=== PATIENT | female | born 1955 | race Caucasian/White ===

== ENCOUNTER → 2016-10-29 | Outpatient (CLI) | payer MEDICAID ==
[~2016-10-29] MED LIST: ACETAMINOPHEN500 M5 PO; ALBUTEROL2.5 MG/3 M IH; AMITRIPTYLINE H10 M2 PO; ANUSOL HC CREAM30 GM REC; ANUSOL HC CREAM30 GM TP; ATROVENT I0.2 MG/1 M IH; BUDEPRION XL150 MG PO; CEFZIL250 MG PO; CEPHALEXIN500 M1 PO; CIPRO 100MG TA100 MG PO; CLONAZEPAM0.5 MG PO; DEXILANT60 MG PO; DIFLUCAN150 MG PO; DULCOLAX STOOL100 MG PO; DULCOLAX100 MG PO; ERGOCALCIFER50000 IU PO; FEMARA2.5 MG PO; FLONASE NASAL S16 GM NS; GABAPENTIN300 M1 PO; GABAPENTIN600 MG PO; GABARONE300 MG PO; GOOD NEIGHBOR500 M2 PO; HYDROCORT CREAM1% TP; HYDROXYZINE HCL25 MG PO; HYDROXYZINE HYD25 MG PO; KLONOPIN 0.5MG0.5 MG PO; LEXAPRO20 M1 PO; LEXAPRO20 MG PO; LIDODERM 5% PATC1 EA TP; LOPRESSOR 550 MG/TAB PO; METAMUCIL POWD538 GM PO; METAMUCIL1 PDR PO; METOPROLOL SUCC50 M1 PO; MIRALAX 17GM PK1 PKT PO; MIRALAX17 GM PO; MIRALAX17 GM/DOSE PO; MUPIROCIN2% TP; NEURONTIN300 M1 PO; NEURONTIN300 MG/CAP PO; OMEGA 3 1,0001 EACH PO; PYRIDIUM 100MG100 MG PO; QVAR8.7 G1 IH; SIMVASTATIN10 MG PO; TRAZADONE HYDR100 MG PO; WELCHOL 625MG625 MG PO; WELLBUTRIN XL300 MG PO; ZOCOR 40MG40 MG PO; ZOFRAN8 MG PO; [UNRECOGNIZED DRUG - OTHER] PO; [UNRECOGNIZED DRUG - OTHER] TP
== END ==
LOC: RAD 08:37
DX: M54.2 Cervicalgia (principal); M25.511 Pain in right shoulder; M48.02 Spinal stenosis, cervical region; M43.22 Fusion of spine, cervical region; M47.812 Spondylosis without myelopathy or radiculopathy, cervical region; M19.011 Primary osteoarthritis, right shoulder

== ENCOUNTER → 2017-01-01 | Outpatient (CLI) | payer MEDICAID | LOC: LAB 08:08 | DX: R39.15 Urgency of urination (principal); R31.9 Hematuria, unspecified ==

== ENCOUNTER → 2017-01-07 | Outpatient (CLI) | payer MEDICAID | LOC: LAB 18:51 | DX: M25.562 Pain in left knee (principal) ==

== ENCOUNTER → 2017-01-08 | Outpatient (CLI) | payer MEDICAID | LOC: LAB 11:28 | DX: R10.2 Pelvic and perineal pain (principal); K62.89 Other specified diseases of anus and rectum ==

== ENCOUNTER → 2017-01-09 | Outpatient (CLI) | payer MEDICAID | LOC: RAD 15:53 | DX: M25.562 Pain in left knee (principal) ==

== ENCOUNTER → 2017-01-14 | Outpatient (CLI) | payer MEDICAID | LOC: RAD 13:14 | DX: R10.2 Pelvic and perineal pain (principal); K62.89 Other specified diseases of anus and rectum; K57.90 Diverticulosis of intestine, part unspecified, without perforation or abscess without bleeding | CPT/HCPCS: Q9967 ==

== ENCOUNTER → 2017-01-26 | Outpatient (CLI) | payer MEDICAID | LOC: LAB 10:08 | DX: M25.562 Pain in left knee (principal); R39.15 Urgency of urination ==

== ENCOUNTER → 2017-02-13 | Outpatient (CLI) | payer MEDICAID ==
[2016-08-16 23:20] VITALS: BP 157/87
== END ==
LOC: LAB 08:11
DX: R19.7 Diarrhea, unspecified (principal)

== ENCOUNTER 2017-03-05 00:46 | Emergency (ER) | payer MEDICAID ==
[~2017-03-05] VITALS: Ht 172.7 cm; Wt 87.9 kg
[2017-03-05 01:51] VITALS: BP 128/76
== END 2017-03-05 01:51 | disposition home or self-care (01) ==
LOC: ED 00:46
DX: K62.5 Hemorrhage of anus and rectum (principal); Z98.890 Other specified postprocedural states; Z85.3 Personal history of malignant neoplasm of breast; K59.00 Constipation, unspecified

== ENCOUNTER → 2017-04-03 | Outpatient (CLI) | payer MEDICAID ==
[2017-03-05 01:51] VITALS: BP 128/76
== END ==
LOC: LAB 07:13
DX: R10.84 Generalized abdominal pain (principal); K21.9 Gastro-esophageal reflux disease without esophagitis; E11.42 Type 2 diabetes mellitus with diabetic polyneuropathy; E78.00 Pure hypercholesterolemia, unspecified; E55.9 Vitamin D deficiency, unspecified; R39.15 Urgency of urination; K73.9 Chronic hepatitis, unspecified

== ENCOUNTER → 2017-05-29 | Outpatient (CLI) | payer MEDICAID | LOC: LAB 14:34 | DX: R30.0 Dysuria (principal) ==

== ENCOUNTER → 2017-07-02 | Outpatient (CLI) | payer MEDICAID | LOC: LAB 10:44 | DX: R10.9 Unspecified abdominal pain (principal); R19.7 Diarrhea, unspecified ==

== ENCOUNTER → 2017-08-18 | Outpatient (CLI) | payer MEDICAID | LOC: MAMMO 13:48 | DX: Z12.31 Encounter for screening mammogram for malignant neoplasm of breast (principal); Z90.12 Acquired absence of left breast and nipple ==

== ENCOUNTER → 2018-01-22 | Outpatient (CLI) | payer MEDICAID | LOC: RAD 11:56 | PROVIDERS: Family Medicine | DX: J06.9 Acute upper respiratory infection, unspecified (principal); R07.89 Other chest pain; K21.9 Gastro-esophageal reflux disease without esophagitis; R16.0 Hepatomegaly, not elsewhere classified; E55.9 Vitamin D deficiency, unspecified; R53.83 Other fatigue ==

== ENCOUNTER → 2018-03-24 | Outpatient (CLI) | payer MEDICAID | LOC: RAD 09:08 | DX: R05 Cough (principal); R06.02 Shortness of breath; Z90.11 Acquired absence of right breast and nipple ==

== ENCOUNTER → 2018-04-22 | Outpatient (CLI) | payer MEDICAID ==
[2018-04-22 08:22] LABS: ALBUMIN 3.9 g/dL (3.5-5.0); DIRECT BILIRUBIN 0.3 mg/dL (0.0-0.4); TOTAL BILIRUBIN 0.8 mg/dL (0.2-1.3); TOTAL PROTEIN 7.3 g/dL (6.3-8.2)
== END ==
LOC: LAB 07:51
PROVIDERS: Family Medicine
DX: E78.00 Pure hypercholesterolemia, unspecified (principal); E11.42 Type 2 diabetes mellitus with diabetic polyneuropathy; R16.0 Hepatomegaly, not elsewhere classified

== ENCOUNTER 2018-05-19 08:07 | Emergency (ER) | payer MEDICAID ==
[~2018-05-19 08:07] MED LIST changes: -ERGOCALCIFER50000 IU PO; +GOOD NEIGHBOR P1 T32 PO; +METAMUCIL POWD174 GM PO; -METAMUCIL POWD538 GM PO
[2018-05-19] MEDS ORDERED: NEURONTIN300 M1 PO (08:17)
[2018-05-19] MEDS ORDERED: IPRATROPIUM BROM3 M1 IH (08:31)
[2018-05-19] MEDS ORDERED: GOOD NEIGHBOR180 MG PO (08:33)
[2018-05-19] MEDS ORDERED: SIMVASTATIN10 M1 PO (08:33)
[2018-05-19] MEDS ORDERED: LIDOCAINE 5%35.44 GM TOP (08:34)
[2018-05-19] MEDS ORDERED: PANTOPRAZOLE SO40 MG PO (08:48)
[2018-05-19 10:21] VITALS: BP 136/75
[2018-05-19] MEDS ORDERED: TRAMADOL 50 MG TAB PO (16:51)
== END 2018-05-19 11:01 | disposition home or self-care (01) ==
LOC: ED 08:07
DX: S82.831A Other fracture of upper and lower end of right fibula, initial encounter for closed fracture (principal); W01.0XXA Fall on same level from slipping, tripping and stumbling without subsequent striking against object, initial encounter; Y92.009 Unspecified place in unspecified non-institutional (private) residence as the place of occurrence of the external cause; F17.210 Nicotine dependence, cigarettes, uncomplicated

== ENCOUNTER → 2018-06-02 | Outpatient (CLI) | payer MEDICAID ==
[2018-05-19 10:21] VITALS: BP 136/75
[~2018-06-02] MED LIST changes: +GOOD NEIGHBOR180 MG PO; +IPRATROPIUM BROM3 M1 IH; +LIDOCAINE 5%35.44 GM TOP; +PANTOPRAZOLE SO40 MG PO; +SIMVASTATIN10 M1 PO; +TRAMADOL 50 MG TAB PO
[2018-06-02 10:07] LABS: BASO # 0.1 (0.02-0.10); EOS # 0.1 (0.04-0.40); EOS % 1.5 % (1.0-5.0); HEMATOCRIT 40.7 % (37.0-47.0); HEMOGLOBIN 13.5 g/dL (12.5-16.0); LYMPH# 3.2 (1.50-4.00); MEAN CELL VOLUME 94 fl (78-100); MEAN CORPUSCULAR HEMOGLOBIN 31 pg (27-31); MEAN CORPUSCULAR HGB CONC 33 g/dL (33-37); MEAN PLATELET VOLUME 9.7 fl (7.4-10.4); MONO # 0.8 (0.20-0.80); PLATELET COUNT 224 K/mm3 (130-400); RED BLOOD COUNT 4.32 M/mm3 (4.10-5.30); RED CELL DISTRIBUTION WIDTH 14.4 % (11.5-14.5); WHITE BLOOD COUNT 9.3 K/mm3 (4.8-10.8)
[2018-06-02 10:19] LABS: BUN/CREATININE RATIO 15.2 (6.0-26.0); CALCIUM 9.3 mg/dL (8.4-10.2); TOTAL BILIRUBIN 1.3 mg/dL (0.2-1.3); TOTAL PROTEIN 7.1 g/dL (6.3-8.2)
[2018-06-02 11:07] LABS: URINE APPEARANCE CLEAR; URINE BILIRUBIN NEGATIVE (NEGATIVE); URINE BLOOD TRACE (NEGATIVE); URINE COLOR YELLOW; URINE GLUCOSE NEGATIVE (NEGATIVE); URINE KETONE NEGATIVE (NEGATIVE); URINE LEUKOCYTE ESTERASE NEGATIVE (NEGATIVE); URINE MUCUS PRESENT (NOT PRESENT); URINE NITRATE NEGATIVE (NEGATIVE); URINE PROTEIN(semi-quant) TRACE mg/dL (NEGATIVE); URINE UROBILINOGEN NORMAL (NORMAL)
== END ==
LOC: RAD 09:33
PROVIDERS: Family Medicine
DX: M79.89 Other specified soft tissue disorders (principal); S82.839A Other fracture of upper and lower end of unspecified fibula, initial encounter for closed fracture; R19.7 Diarrhea, unspecified; M53.3 Sacrococcygeal disorders, not elsewhere classified; R50.9 Fever, unspecified; M79.672 Pain in left foot; Z98.890 Other specified postprocedural states; Z96.7 Presence of other bone and tendon implants

== ENCOUNTER → 2018-06-16 | Outpatient (CLI) | payer MEDICAID ==
[2018-05-19 10:21] VITALS: BP 136/75
== END ==
LOC: LAB 15:08
DX: R19.7 Diarrhea, unspecified (principal)

== ENCOUNTER → 2018-07-27 | Outpatient (CLI) | payer MEDICAID ==
[2018-07-27 11:59] LABS: ALBUMIN 3.8 g/dL (3.5-5.0); CALCIUM 9.1 mg/dL (8.4-10.2); POTASSIUM 3.7 mmol/L (3.6-5.0); TOTAL BILIRUBIN 1.6 mg/dL (0.2-1.3); TOTAL PROTEIN 6.6 g/dL (6.3-8.2)
[2018-07-27 12:07] LABS: EOS # 0.1 (0.04-0.40); EOS % 0.9 % (1.0-5.0); HEMATOCRIT 42.5 % (37.0-47.0); LYMPH# 3.4 (1.50-4.00); MEAN CELL VOLUME 94 fl (78-100); MEAN CORPUSCULAR HEMOGLOBIN 31 pg (27-31); MEAN CORPUSCULAR HGB CONC 33 g/dL (33-37); MEAN PLATELET VOLUME 10.3 fl (7.4-10.4); MONO # 0.6 (0.20-0.80); NEU # 4.1 (1.40-6.50); PLATELET COUNT 185 K/mm3 (130-400); RED BLOOD COUNT 4.53 M/mm3 (4.10-5.30); RED CELL DISTRIBUTION WIDTH 13.5 % (11.5-14.5); WHITE BLOOD COUNT 8.2 K/mm3 (4.8-10.8)
== END ==
LOC: LAB 11:15
DX: R19.7 Diarrhea, unspecified (principal); R74.8 Abnormal levels of other serum enzymes; R11.0 Nausea; K62.89 Other specified diseases of anus and rectum; R19.5 Other fecal abnormalities; K64.1 Second degree hemorrhoids

== ENCOUNTER → 2018-08-25 | Outpatient (CLI) | payer MEDICAID | LOC: RAD 08-02 08:00 | DX: R74.8 Abnormal levels of other serum enzymes (principal) ==

== ENCOUNTER → 2018-09-14 | Day surgery (SDC) | payer MEDICAID | LOC: MSO 09:58 | DX: K44.9 Diaphragmatic hernia without obstruction or gangrene (principal); R19.7 Diarrhea, unspecified; R11.2 Nausea with vomiting, unspecified; K29.70 Gastritis, unspecified, without bleeding; Z86.010 Personal history of colon polyps; K64.1 Second degree hemorrhoids; K57.30 Diverticulosis of large intestine without perforation or abscess without bleeding; I10 Essential (primary) hypertension; Z86.718 Personal history of other venous thrombosis and embolism; Z86.711 Personal history of pulmonary embolism; J45.909 Unspecified asthma, uncomplicated; F17.210 Nicotine dependence, cigarettes, uncomplicated; K21.9 Gastro-esophageal reflux disease without esophagitis; K75.9 Inflammatory liver disease, unspecified; M79.7 Fibromyalgia; F41.9 Anxiety disorder, unspecified; F32.9 Major depressive disorder, single episode, unspecified; E11.9 Type 2 diabetes mellitus without complications; Z85.9 Personal history of malignant neoplasm, unspecified; Z79.899 Other long term (current) drug therapy; Z90.12 Acquired absence of left breast and nipple | CPT/HCPCS: 00813; A4649; J2704; J7030 ==

== ENCOUNTER → 2018-10-13 | Outpatient (CLI) | payer MEDICAID | LOC: MAMMO 13:58 | DX: Z12.31 Encounter for screening mammogram for malignant neoplasm of breast (principal); Z85.3 Personal history of malignant neoplasm of breast; Z90.12 Acquired absence of left breast and nipple ==

== ENCOUNTER → 2018-12-17 | Outpatient (CLI) | payer MEDICAID | LOC: LAB 11:36 | DX: L03.011 Cellulitis of right finger (principal) ==

== ENCOUNTER → 2019-06-13 | Outpatient (CLI) | payer MEDICARE, MEDICAID ==
[2019-06-13 09:29] LABS: POTASSIUM 3.5 mmol/L (3.5-5.1)
[2019-06-13 09:30] LABS: ALBUMIN 3.6 g/dL (3.4-4.8)
[2019-06-13 09:34] LABS: TOTAL BILIRUBIN 1.2 mg/dL (0.2-1.2)
[2019-06-13 09:41] LABS: EOS # 0.1 (0.04-0.40); EOS % 0.8 % (1.0-5.0); HEMATOCRIT 41.1 % (37.0-47.0); HEMOGLOBIN 13.4 g/dL (12.5-16.0); LYMPH# 2.6 (1.50-4.00); MEAN CELL VOLUME 96 fl (78-100); MEAN CORPUSCULAR HEMOGLOBIN 31 pg (27-31); MEAN CORPUSCULAR HGB CONC 33 g/dL (33-37); MEAN PLATELET VOLUME 9.8 fl (7.4-10.4); MONO # 0.7 (0.20-0.80); NEU # 5.3 (1.40-6.50); PLATELET COUNT 192 K/mm3 (130-400); RED BLOOD COUNT 4.27 M/mm3 (4.10-5.30); WHITE BLOOD COUNT 8.7 K/mm3 (4.8-10.8)
== END ==
LOC: LAB 09:04
PROVIDERS: Family Medicine
DX: Z00.00 Encounter for general adult medical examination without abnormal findings (principal); E11.42 Type 2 diabetes mellitus with diabetic polyneuropathy; N39.44 Nocturnal enuresis; M81.0 Age-related osteoporosis without current pathological fracture; E78.00 Pure hypercholesterolemia, unspecified; F41.9 Anxiety disorder, unspecified; M54.2 Cervicalgia; J01.80 Other acute sinusitis; I10 Essential (primary) hypertension; K63.5 Polyp of colon; F32.9 Major depressive disorder, single episode, unspecified

== ENCOUNTER → 2019-06-30 | Outpatient (CLI) | payer MEDICARE, MEDICAID | LOC: RAD 11:49 | DX: J06.9 Acute upper respiratory infection, unspecified (principal); C50.919 Malignant neoplasm of unspecified site of unspecified female breast ==

== ENCOUNTER → 2019-07-18 | Outpatient (CLI) | payer MEDICARE, MEDICAID | LOC: RAD 09:14 | DX: S92.341A Displaced fracture of fourth metatarsal bone, right foot, initial encounter for closed fracture (principal); M20.11 Hallux valgus (acquired), right foot ==

== ENCOUNTER → 2019-08-29 | Outpatient (CLI) | payer MEDICARE, MEDICAID ==
[2019-08-29 14:53] LABS: HEMATOCRIT 42.1 % (37.0-47.0); HEMOGLOBIN 14.1 g/dL (12.5-16.0); MEAN PLATELET VOLUME 9.4 fl (7.4-10.4); RED BLOOD COUNT 4.47 M/mm3 (4.10-5.30); RED CELL DISTRIBUTION WIDTH 14.6 % (11.5-14.5); WHITE BLOOD COUNT 8.1 K/mm3 (4.8-10.8)
== END ==
LOC: LAB 14:30
PROVIDERS: Family Medicine
DX: M79.7 Fibromyalgia (principal); E55.9 Vitamin D deficiency, unspecified; M79.673 Pain in unspecified foot; M54.2 Cervicalgia; M25.511 Pain in right shoulder; M25.512 Pain in left shoulder

== ENCOUNTER 2019-09-05 09:40 | Observation (INO) | payer MEDICARE, MEDICAID ==
[~2019-09-05] VITALS: Ht 172.7 cm; Wt 84.7 kg
[~2019-09-05 09:40] MED LIST changes: +DULCOLAX STOOL100 M1 PO; -DULCOLAX STOOL100 MG PO
[2019-09-05] MEDS ORDERED: BACLOFEN5 MG PO (09:58)
[2019-09-05] MEDS ORDERED: PULMICORT90 MCG/Ac1 IH (09:59)
[2019-09-05 10:16] LABS: EOS # 0.1 (0.04-0.40); EOS % 1.4 % (1.0-5.0); HEMATOCRIT 43.6 % (37.0-47.0); HEMOGLOBIN 14.4 g/dL (12.5-16.0); LYMPH# 2.9 (1.50-4.00); MEAN CELL VOLUME 94 fl (78-100); MEAN CORPUSCULAR HEMOGLOBIN 31 pg (27-31); MEAN CORPUSCULAR HGB CONC 33 g/dL (33-37); MEAN PLATELET VOLUME 9.7 fl (7.4-10.4); MONO # 0.6 (0.20-0.80); NEU # 3.7 (1.40-6.50); PLATELET COUNT 188 K/mm3 (130-400); RED BLOOD COUNT 4.64 M/mm3 (4.10-5.30); RED CELL DISTRIBUTION WIDTH 14.7 % (11.5-14.5); WHITE BLOOD COUNT 7.3 K/mm3 (4.8-10.8)
[2019-09-05 10:29] LABS: ALBUMIN 3.9 g/dL (3.4-4.8)
[2019-09-05 10:30] LABS: SODIUM 146 mmol/L (136-145)
[2019-09-05 10:31] LABS: CALCIUM 9.8 mg/dL (8.3-10.5)
[2019-09-05 10:32] LABS: GLUCOSE 118 mg/dL (65-105)
[2019-09-05 10:33] LABS: CARBON DIOXIDE 30 mmol/L (23-31)
[2019-09-05 10:34] LABS: POTASSIUM 2.8 mmol/L (3.5-5.1); TOTAL BILIRUBIN 1.7 mg/dL (0.2-1.2)
[2019-09-05 10:37] LABS: AST-SGOT 34 U/L (5-34)
[2019-09-05 10:38] LABS: ALT/SGPT 17 U/L (0-55)
[2019-09-05 10:48] LABS: TROPONIN-I < 0.03 ng/mL (<0.030)
[2019-09-05 10:49] LABS: URINE APPEARANCE HAZY; URINE BILIRUBIN NEGATIVE (NEGATIVE); URINE BLOOD 50 ery/uL (NEGATIVE); URINE COLOR YELLOW; URINE GLUCOSE NEGATIVE (NEGATIVE); URINE KETONE NEGATIVE (NEGATIVE); URINE LEUKOCYTE ESTERASE NEGATIVE (NEGATIVE); URINE MUCUS PRESENT (NOT PRESENT); URINE NITRATE NEGATIVE (NEGATIVE); URINE PROTEIN(semi-quant) TRACE mg/dL (NEGATIVE); URINE UROBILINOGEN NORMAL (NORMAL)
[2019-09-05] MEDS ORDERED: GOOD NEIGHBOR P1 T32 PO (10:55)
[2019-09-05] MEDS ORDERED: GABAPENTIN TAB600 MG PO (10:57)
[2019-09-05] MEDS ORDERED: ESCITALOPRAM20 MG PO (10:57)
[2019-09-05 12:34] VITALS: BP 190/102
--- NOTE | 2019-09-05 13:00 | NUR ---
Pt admitted to room 304. Oriented to room. Pt is alert and oriented but forgetful. Pt in recliner with chair alarm. IV infusing as ordered into right AC.
[2019-09-05 13:13] VITALS: BP 190/102
[2019-09-05 14:46] VITALS: BP 146/82
[2019-09-05 18:06] VITALS: BP 169/97
--- NOTE | 2019-09-05 19:54 | NUR ---
PATIENT RESTING IN BED. SHIFT ASSESSMENT COMPLETED AT THIS TIME. PATIENT A/O X4. REPORTS PAIN 9/10 TO BACK OF HEAD, WILL LET PATIENT KNOW SHE IS ABLE TO HAVE MORE PAIN MEDICATIONS. LUNGS CTA, DENIES COUGH OR SHORTNESS OF BREATH. TELE TRACING NSR. NEURO CHECKS COMPLETED Q4H. 20 G IV CDI TO RIGHT AC, INFUSING 1/2 NS WITH K+ @ 83 MLS/HR. +2 BLE EDEMA NOTED. HS MEDICATIONS GIVEN, WILL GIVE CLONAZEPAM CLOSER TO 2200 PER PATIENT REQUEST. PATIENT WITHOUT FURTHER NEEDS AT THIS TIME, WILL CONTINUE TO MONITOR. CALL LIGHT WITHIN REACH AND BED ALARMS ON.
[2019-09-05 22:47] VITALS: BP 149/77
[2019-09-06] VITALS (7 sets, daily range): BP systolic 134–200; BP diastolic 64–109
[2019-09-06 06:20] LABS: ALBUMIN 3.4 g/dL (3.4-4.8)
[2019-09-06 06:21] LABS: POTASSIUM 3.9 mmol/L (3.5-5.1)
[2019-09-06 06:22] LABS: CALCIUM 9.2 mg/dL (8.3-10.5)
[2019-09-06 06:23] LABS: TOTAL PROTEIN 5.9 g/dL (6.2-8.1)
[2019-09-06 06:25] LABS: TOTAL BILIRUBIN 1.2 mg/dL (0.2-1.2)
--- NOTE | 2019-09-06 07:00 | NUR ---
REPORT RECEIVED FROM CHANA HENSON.
--- NOTE | 2019-09-06 07:30 | NUR ---
AWAKENS EASILY FROM SLEEP. 1/2NS WITH 20MEQ KCL INFUSING PER ORDERS TO INTACT IV SITE AT RT AC. C/O HEAD AND NECK DISCOMFORT; MORE TO THE RT SIDE. RATES 9/10. ALSO HAS DISCOMFORT TO BOTH FEET; DESCRIBES FEET HARD ON THE INSIDE. ANSWERS ORIENTATION QUESTIONS CORRECTLY. STUTTERS AT TIMES. PUPILS ARE NOT EQUAL; RT IS SLIGHTLY LARGER THAN LT. BOTH ARE BRISKLY REACTIVE TO LIGHT. PATIENT STATES "THAT'S THE ONE I HAVE ISSUES WITH SOMETIMES" SHE POINTS TO RT EYE. DOES NOT WISH TO GET UP FOR BREAKFAST AT THIS TIME. WILL COME BACK IN 30 MINUTES. CALL LIGHT IN REACH.
--- NOTE | 2019-09-06 07:45 | NUR ---
DR FIGUEROA NOTIFIED OF PUPIL SIZE. HE IS IN FACILITY AND WILL ASSESS PATIENT.
--- NOTE | 2019-09-06 08:14 | NUR ---
IV FLUIDS STOPPED AT THIS TIME.
--- NOTE | 2019-09-06 15:55 | NUR ---
RESTING IN BED WITH EYES CLOSED AND ROOM LIGHTS OFF. AWAKENS EASILY. STILL HAS HEADACHE. TYLENOL GIVEN. WATER CUP REFILLED.
--- NOTE | 2019-09-06 19:19 | NUR ---
REPORT PROVIDED TO JUSTINE HENSON.
--- NOTE | 2019-09-06 20:00 | NUR ---
ASSMNT COMPLETE, PT STATES 'FEET FEEL HEAVY', NO OTHER C/O PAIN, ASSISTED PT TO BATHROOM, USES WALKER, NO OTHER REQUESTS, CALL LIGHT W/I REACH
[2019-09-07 03:27] VITALS: BP 161/87
[2019-09-07 06:15] VITALS: BP 158/85
[2019-09-07] MEDS ORDERED: METOPROLOL TAR100 M1 PO (08:09)
[2019-09-07] MEDS ORDERED: EFFER-K20 MEQ PO (08:10)
[2019-09-07 09:02] LABS: POTASSIUM 3.8 mmol/L (3.5-5.1)
[2019-09-07 09:03] LABS: CALCIUM 9.2 mg/dL (8.3-10.5)
[2019-09-07 11:56] VITALS: BP 157/79
--- NOTE | 2019-09-07 12:58 | NUR ---
Patient alert and oriented. Reports dull neck pain. Denies need for PRN pain medication. Denies dizziness or shortness of breath. MRI and ECHO completed this morning. Patient discharged to home. Discharge instructions provided. Education on increased metoprolol dose provided. Called [facility] regarding cost of new medications, pharmacy staff reports total cost is $0. Medications will be delivered this afternoon per patient request. Follow up appointments with Dr. Rubio and Dr. Aguirre scheduled. Patient verbalizes understanding of discharge instructions. All questions answered. Out of facility via wheelchair to POV. Transfers into POV without incident.
== END 2019-09-07 12:58 | disposition home or self-care (01) ==
LOC: ED 09:40 → MED/SURG 11:56
PROVIDERS: Family Medicine; ADMIT Nurse Practitioner Primary Care
DX: E87.6 Hypokalemia (principal); E86.0 Dehydration; I10 Essential (primary) hypertension; R51 Headache; F41.9 Anxiety disorder, unspecified; F32.9 Major depressive disorder, single episode, unspecified; R41.82 Altered mental status, unspecified; E11.9 Type 2 diabetes mellitus without complications; Z85.3 Personal history of malignant neoplasm of breast; K73.9 Chronic hepatitis, unspecified; K21.9 Gastro-esophageal reflux disease without esophagitis; E78.5 Hyperlipidemia, unspecified; M79.7 Fibromyalgia; Z90.12 Acquired absence of left breast and nipple; Z79.899 Other long term (current) drug therapy; F17.210 Nicotine dependence, cigarettes, uncomplicated; Z88.8 Allergy status to other drugs, medicaments and biological substances; Z88.6 Allergy status to analgesic agent; Z91.041 Radiographic dye allergy status
CPT/HCPCS: A9585; G0378; J1650; J3480

== ENCOUNTER → 2019-10-11 | Outpatient (CLI) | payer MEDICARE, MEDICAID ==
[~2019-10-11] MED LIST changes: +BACLOFEN5 MG PO; +EFFER-K20 MEQ PO; +ESCITALOPRAM20 MG PO; +GABAPENTIN TAB600 MG PO; +METOPROLOL TAR100 M1 PO; +PULMICORT90 MCG/Ac1 IH
[2019-10-11 11:34] LABS: POTASSIUM 4.2 mmol/L (3.5-5.1)
[2019-10-11 11:35] LABS: CALCIUM 9.6 mg/dL (8.3-10.5)
== END ==
LOC: LAB 11:13
PROVIDERS: Family Medicine
DX: E87.6 Hypokalemia (principal)

== ENCOUNTER → 2019-10-21 | Outpatient (CLI) | payer MEDICARE, MEDICAID ==
[2019-10-21 10:59] LABS: POTASSIUM 3.7 mmol/L (3.5-5.1)
[2019-10-21 11:00] LABS: CALCIUM 9.2 mg/dL (8.3-10.5)
== END ==
LOC: LAB 10:36
PROVIDERS: Family Medicine
DX: E87.6 Hypokalemia (principal)

== ENCOUNTER → 2019-11-08 | Outpatient (CLI) | payer MEDICARE, MEDICAID ==
[2019-11-08 09:13] LABS: POTASSIUM 3.8 mmol/L (3.5-5.1)
[2019-11-08 09:14] LABS: ALBUMIN 3.7 g/dL (3.4-4.8)
[2019-11-08 09:15] LABS: CALCIUM 9.8 mg/dL (8.3-10.5); EOS # 0.1 (0.04-0.40); HEMATOCRIT 42.2 % (37.0-47.0); HEMOGLOBIN 13.4 g/dL (12.5-16.0); MEAN CELL VOLUME 98 fl (78-100); MEAN CORPUSCULAR HEMOGLOBIN 31 pg (27-31); MEAN CORPUSCULAR HGB CONC 32 g/dL (33-37); MEAN PLATELET VOLUME 9.4 fl (7.4-10.4); MONO # 0.6 (0.20-0.80); PLATELET COUNT 187 K/mm3 (130-400); RED BLOOD COUNT 4.32 M/mm3 (4.10-5.30); RED CELL DISTRIBUTION WIDTH 14.1 % (11.5-14.5); WHITE BLOOD COUNT 8.7 K/mm3 (4.8-10.8)
[2019-11-08 09:16] LABS: TOTAL PROTEIN 6.7 g/dL (6.2-8.1)
[2019-11-08 09:18] LABS: TOTAL BILIRUBIN 1.1 mg/dL (0.2-1.2)
[2019-11-08 10:37] LABS: ERYTHROCYTE SEDIMENTATION RATE 18 mm/hr (0-30)
[2019-11-09 02:12] LABS: FOLATE (FOLIC ACID) 7.4 ng/mL (7.0-31.4)
[2019-11-10 00:48] LABS: CERULOPLASMIN 29 mg/dL (18-53)
[2019-11-10 05:38] LABS: BETA-2GPI IGG AABS <20.0 CU (<=20.0); BETA-2GPI IGM AABS <20.0 CU (<=20.0)
[2019-11-10 19:14] LABS: .COPPER,S 1.26 mcg/mL (())
[2019-11-11 11:21] LABS: VITAMIN B1 134 nmol/L (70-180)
[2019-11-12 06:24] LABS: VITAMIN E 9.2 mg/L (())
[2019-11-14 16:58] LABS: A/G RATIO (PEP) 0.96 (()); BETA GLOBULINS (PEP) 1.2 g/dL (0.7-1.2)
[2019-11-15 11:29] LABS: C-ANCA 6 U/mL (0-99)
[2019-11-16 16:35] LABS: ANA SCREEN with REFLEX Negative (Negative)
== END ==
LOC: LAB 08:19
PROVIDERS: Psychiatry & Neurology Neurology
DX: G43.019 Migraine without aura, intractable, without status migrainosus (principal); M48.02 Spinal stenosis, cervical region; G60.9 Hereditary and idiopathic neuropathy, unspecified; E87.6 Hypokalemia

== ENCOUNTER → 2019-11-12 | Outpatient (CLI) | payer MEDICARE, MEDICAID | LOC: LAB 12:17 | DX: R39.89 Other symptoms and signs involving the genitourinary system (principal) ==

== ENCOUNTER → 2019-12-12 | Outpatient (CLI) | payer MEDICARE, MEDICAID ==
[2019-12-12 14:50] LABS: URINE APPEARANCE HAZY; URINE BILIRUBIN NEGATIVE (NEGATIVE); URINE BLOOD TRACE (NEGATIVE); URINE COLOR YELLOW; URINE GLUCOSE NEGATIVE (NEGATIVE); URINE KETONE NEGATIVE (NEGATIVE); URINE LEUKOCYTE ESTERASE TRACE (NEGATIVE); URINE NITRATE NEGATIVE (NEGATIVE); URINE PROTEIN(semi-quant) TRACE mg/dL (NEGATIVE); URINE UROBILINOGEN NORMAL (NORMAL)
== END ==
LOC: LAB 13:43
PROVIDERS: Family Medicine
DX: M54.9 Dorsalgia, unspecified (principal); R30.0 Dysuria

== ENCOUNTER 2019-12-30 09:53 | Emergency (ER) | payer MEDICARE, MEDICAID ==
[~2019-12-30] VITALS: Ht 172.7 cm; Wt 86.8 kg
[2019-12-30] MEDS ORDERED: NORCO 325 MG-51 TA1 PO (11:50)
[2019-12-30 12:00] VITALS: BP 188/92
== END 2019-12-30 12:00 | disposition home or self-care (01) ==
LOC: ED 09:53
DX: S42.211A Unspecified displaced fracture of surgical neck of right humerus, initial encounter for closed fracture (principal); E11.9 Type 2 diabetes mellitus without complications; I10 Essential (primary) hypertension; M79.7 Fibromyalgia; F17.210 Nicotine dependence, cigarettes, uncomplicated; Z85.3 Personal history of malignant neoplasm of breast; W18.30XA Fall on same level, unspecified, initial encounter; Y92.009 Unspecified place in unspecified non-institutional (private) residence as the place of occurrence of the external cause
CPT/HCPCS: A4565; J3010

== ENCOUNTER → 2020-01-03 | Outpatient (CLI) | payer MEDICARE, MEDICAID ==
[2019-12-30 12:00] VITALS: BP 188/92
[~2020-01-03] MED LIST changes: +NORCO 325 MG-51 TA1 PO
== END ==
LOC: RAD 10:02
DX: S42.251A Displaced fracture of greater tuberosity of right humerus, initial encounter for closed fracture (principal)

== ENCOUNTER → 2020-02-09 | Outpatient (CLI) | payer MEDICARE, MEDICAID ==
[~2020-02-09] VITALS: Ht 167.6 cm; Wt 81.4 kg
[~2020-02-09] MED LIST changes: +CYANOCOBAL1000 MCG/1 IM; +FLEET ENEM1 BOT/133 RC; +GAS-X EXTRA ST125 MG PO; +LIDOCAINE 5%35.44 GM TP; +VOLTAREN GEL1% TP
[2020-02-09 12:58] LABS: POTASSIUM 3.3 mmol/L (3.5-5.1)
[2020-02-09 12:59] LABS: CALCIUM 9.4 mg/dL (8.3-10.5)
[2020-02-09 13:10] LABS: BASO # 0.1 (0.02-0.10); EOS # 0.2 (0.04-0.40); EOS % 1.1 % (1.0-5.0); HEMATOCRIT 40.5 % (37.0-47.0); HEMOGLOBIN 12.8 g/dL (12.5-16.0); LYMPH# 2.9 (1.50-4.00); MEAN CELL VOLUME 94 fl (78-100); MEAN CORPUSCULAR HEMOGLOBIN 30 pg (27-31); MEAN CORPUSCULAR HGB CONC 32 g/dL (33-37); MEAN PLATELET VOLUME 10.7 fl (7.4-10.4); MONO # 1.4 (0.20-0.80); PLATELET COUNT 221 K/mm3 (130-400); RED BLOOD COUNT 4.29 M/mm3 (4.10-5.30); RED CELL DISTRIBUTION WIDTH 13.4 % (11.5-14.5); WHITE BLOOD COUNT 15.9 K/mm3 (4.8-10.8)
[2020-02-09 13:12] LABS: NEU # 11.3 (1.40-6.50)
[2020-02-09 13:22] LABS: URINE APPEARANCE HAZY; URINE COLOR AMBER; URINE GLUCOSE NEGATIVE (NEGATIVE); URINE PROTEIN(semi-quant) 1+ mg/dL (NEGATIVE)
[2020-02-09 13:23] LABS: URINE KETONE TR (NEGATIVE)
[2020-02-09 13:30] LABS: URINE BILIRUBIN 2+ (NEGATIVE); URINE BLOOD 50 ery/uL (NEGATIVE); URINE LEUKOCYTE ESTERASE TRACE (NEGATIVE); URINE NITRATE NEGATIVE (NEGATIVE); URINE UROBILINOGEN 4 mg/dL (NORMAL)
[2020-02-09 13:31] LABS: URINE MUCUS PRESENT (NOT PRESENT)
[2020-02-09 13:55] VITALS: BP 116/54
--- NOTE | 2020-02-09 14:20 | NUR ---
SOAP SUDS ENEMA PROVIDED. ADMIN APPROX 300CC FLUID. PATIENT UNABLE TO HOLD FLUID IN. UP TO BATHROOM AND PASSES LIQUID BROWN STOOL AND 2 SMALL HARD STOOL PIECES. FEELS LESS PRESSURE TO PELVIS AFTER THIS. DENIES NAUSEA.
--- NOTE | 2020-02-09 14:55 | NUR ---
ATTEMPT #2 TO ADMINISTER SOAP SUDS ENEMA. FLUID COMES OUT QUICKLY INSERTED. PATIENT DENIES DISCOMFORT DURING PROCESS. TALK WITH DR FIGUEROA AND ORDERS RECEIVED FOR MAG CITRATE, ONE HALF BOTTLE PO NOW.
[2020-02-09 17:03] LABS: ALBUMIN 3.5 g/dL (3.4-4.8)
[2020-02-09 17:07] LABS: TOTAL BILIRUBIN 1.7 mg/dL (0.2-1.2)
[2020-02-09 17:11] LABS: DIRECT BILIRUBIN 0.7 mg/dL (0.0-0.5)
[2020-02-09 17:20] VITALS: BP 122/80
== END ==
LOC: AMSURD 12:07 → LAB 12:07
PROVIDERS: Family Medicine
DX: K56.41 Fecal impaction (principal); S42.301A Unspecified fracture of shaft of humerus, right arm, initial encounter for closed fracture; K62.6 Ulcer of anus and rectum; K64.4 Residual hemorrhoidal skin tags

== ENCOUNTER → 2020-04-13 | Outpatient (CLI) | payer MEDICARE, MEDICAID ==
[2020-02-09 17:20] VITALS: BP 122/80
[2020-04-13 10:04] LABS: BASO # 0.1 (0.02-0.10); EOS # 0.1 (0.04-0.40); HEMATOCRIT 45.6 % (37.0-47.0); HEMOGLOBIN 14.6 g/dL (12.5-16.0); LYMPH# 4.4 (1.50-4.00); MEAN CELL VOLUME 90 fl (78-100); MEAN CORPUSCULAR HEMOGLOBIN 29 pg (27-31); MEAN CORPUSCULAR HGB CONC 32 g/dL (33-37); MEAN PLATELET VOLUME 10.2 fl (7.4-10.4); MONO # 1.2 (0.20-0.80); NEU # 7.7 (1.40-6.50); PLATELET COUNT 220 K/mm3 (130-400); RED BLOOD COUNT 5.06 M/mm3 (4.10-5.30); RED CELL DISTRIBUTION WIDTH 15.2 % (11.5-14.5); WHITE BLOOD COUNT 13.5 K/mm3 (4.8-10.8)
[2020-04-13 10:15] LABS: ALBUMIN 3.8 g/dL (3.4-4.8); POTASSIUM 5.1 mmol/L (3.5-5.1)
[2020-04-13 10:17] LABS: TOTAL PROTEIN 7.1 g/dL (6.2-8.1)
== END ==
LOC: LAB 09:49
PROVIDERS: Family Medicine
DX: J34.89 Other specified disorders of nose and nasal sinuses (principal); K73.9 Chronic hepatitis, unspecified; M79.601 Pain in right arm

== ENCOUNTER 2020-04-23 12:01 | Emergency (ER) | payer MEDICARE, MEDICAID ==
[~2020-04-23] VITALS: Ht 172.7 cm; Wt 78.0 kg
[2020-04-23 12:53] LABS: EOS # 0.1 (0.04-0.40); EOS % 1.1 % (1.0-5.0); HEMATOCRIT 42.1 % (37.0-47.0); HEMOGLOBIN 13.2 g/dL (12.5-16.0); LYMPH# 2.9 (1.50-4.00); MEAN CELL VOLUME 90 fl (78-100); MEAN CORPUSCULAR HEMOGLOBIN 28 pg (27-31); MEAN CORPUSCULAR HGB CONC 31 g/dL (33-37); MEAN PLATELET VOLUME 10.3 fl (7.4-10.4); MONO # 0.8 (0.20-0.80); NEU # 5.4 (1.40-6.50); PLATELET COUNT 182 K/mm3 (130-400); RED BLOOD COUNT 4.69 M/mm3 (4.10-5.30); RED CELL DISTRIBUTION WIDTH 15.1 % (11.5-14.5); WHITE BLOOD COUNT 9.2 K/mm3 (4.8-10.8)
[2020-04-23 13:01] LABS: ALBUMIN 3.3 g/dL (3.4-4.8); POTASSIUM 3.8 mmol/L (3.5-5.1); SODIUM 142 mmol/L (136-145)
[2020-04-23 13:02] LABS: CALCIUM 8.9 mg/dL (8.3-10.5)
[2020-04-23 13:03] LABS: GLUCOSE 87 mg/dL (65-105)
[2020-04-23 13:04] LABS: CARBON DIOXIDE 30 mmol/L (23-31); D-DIMER 0.35 mg/L FEU (0.15-0.50)
[2020-04-23 13:09] LABS: AST-SGOT 18 U/L (5-34)
[2020-04-23 13:10] LABS: ALT/SGPT 12 U/L (0-55)
[2020-04-23 13:16] LABS: TROPONIN-I < 0.03 ng/mL (<0.030)
[2020-04-23] MEDS ORDERED: IPRATROPIUM BROM3 M1 IH ×2 (13:35→13:36)
[2020-04-23] MEDS ORDERED: ALLER-FEX180 MG PO (13:35)
[2020-04-23] MEDS ORDERED: PULMICORT0.5 MG/2 M IH (13:36)
[2020-04-23] MEDS ORDERED: NEURONTIN300 M1 PO (13:39)
[2020-04-23] MEDS ORDERED: HYDROCODONE AN473 M1 PO (14:09)
[2020-04-23] MEDS ORDERED: VIBRAMYCIN HYC100 MG PO (14:09)
[2020-04-23] MEDS ORDERED: PROAIR HFA0.09 MG/AC IH (14:09)
[2020-04-23 15:06] VITALS: BP 153/79
== END 2020-04-23 14:40 | disposition home or self-care (01) ==
LOC: ED 12:01
PROVIDERS: Nurse Practitioner Primary Care
DX: J20.9 Acute bronchitis, unspecified (principal); I10 Essential (primary) hypertension; K21.9 Gastro-esophageal reflux disease without esophagitis; F32.9 Major depressive disorder, single episode, unspecified; Z20.828 Contact with and (suspected) exposure to other viral communicable diseases

== ENCOUNTER → 2020-06-28 | Day surgery (SDC) | payer MEDICARE, MEDICAID ==
[~2020-06-28] MED LIST changes: +ALLER-FEX180 MG PO; +HYDROCODONE AN473 M1 PO; +PROAIR HFA0.09 MG/AC IH; +PULMICORT0.5 MG/2 M IH; +VIBRAMYCIN HYC100 MG PO
== END ==
LOC: MSO 07:02
DX: D12.0 Benign neoplasm of cecum (principal); R19.7 Diarrhea, unspecified; I10 Essential (primary) hypertension; J45.909 Unspecified asthma, uncomplicated; F17.210 Nicotine dependence, cigarettes, uncomplicated; M19.90 Unspecified osteoarthritis, unspecified site; Z85.3 Personal history of malignant neoplasm of breast; M79.7 Fibromyalgia; F32.9 Major depressive disorder, single episode, unspecified; F41.9 Anxiety disorder, unspecified; Z98.61 Coronary angioplasty status; Z90.12 Acquired absence of left breast and nipple
CPT/HCPCS: 00813; J2704; J7120

== ENCOUNTER → 2020-06-29 | Outpatient (CLI) | payer MEDICARE, MEDICAID ==
[2020-06-29 11:17] LABS: URINE APPEARANCE CLEAR; URINE BILIRUBIN NEGATIVE (NEGATIVE); URINE BLOOD TRACE (NEGATIVE); URINE COLOR YELLOW; URINE GLUCOSE NEGATIVE (NEGATIVE); URINE KETONE NEGATIVE (NEGATIVE); URINE LEUKOCYTE ESTERASE NEGATIVE (NEGATIVE); URINE MUCUS PRESENT (NOT PRESENT); URINE NITRATE NEGATIVE (NEGATIVE); URINE PROTEIN(semi-quant) NEGATIVE (NEGATIVE); URINE UROBILINOGEN NORMAL (NORMAL)
== END ==
LOC: LAB 10:56
PROVIDERS: Family Medicine
DX: E78.5 Hyperlipidemia, unspecified (principal); R10.2 Pelvic and perineal pain

== ENCOUNTER 2020-10-15 12:12 | Emergency (ER) | payer MEDICARE, MEDICAID ==
[~2020-10-15 12:12] MED LIST changes: +MORGIDOX 1X100100 MG PO; +POTASSIUM CHLO480 ML PO; +PREDNISONE20 M1 PO; +[UNRECOGNIZED DRUG - OTHER] PO
[2020-10-15 12:40] LABS: EOS # 0.1 (0.04-0.40); EOS % 0.9 % (1.0-5.0); HEMATOCRIT 42.6 % (37.0-47.0); HEMOGLOBIN 13.7 g/dL (12.5-16.0); LYMPH# 3.3 (1.50-4.00); MEAN CELL VOLUME 90 fl (78-100); MEAN CORPUSCULAR HEMOGLOBIN 29 pg (27-31); MEAN CORPUSCULAR HGB CONC 32 g/dL (33-37); NEU # 7.9 (1.40-6.50); PLATELET COUNT 182 K/mm3 (130-400); RED BLOOD COUNT 4.76 M/mm3 (4.10-5.30); RED CELL DISTRIBUTION WIDTH 15.4 % (11.5-14.5); WHITE BLOOD COUNT 12.3 K/mm3 (4.8-10.8)
[2020-10-15 12:53] LABS: ALBUMIN 3.5 g/dL (3.4-4.8); POTASSIUM 4.3 mmol/L (3.5-5.1)
[2020-10-15 12:54] LABS: CALCIUM 9.1 mg/dL (8.3-10.5)
[2020-10-15 12:55] LABS: TOTAL PROTEIN 6.3 g/dL (6.2-8.1)
[2020-10-15 12:57] LABS: TOTAL BILIRUBIN 1.1 mg/dL (0.2-1.2)
[2020-10-15 12:58] LABS: PH-URINE 5.5 (5.0 - 8.0); URINE APPEARANCE CLEAR; URINE BILIRUBIN NEGATIVE (NEGATIVE); URINE BLOOD NEGATIVE (NEGATIVE); URINE COLOR YELLOW; URINE GLUCOSE NEGATIVE (NEGATIVE); URINE KETONE NEGATIVE (NEGATIVE); URINE LEUKOCYTE ESTERASE NEGATIVE (NEGATIVE); URINE NITRATE NEGATIVE (NEGATIVE); URINE PROTEIN(semi-quant) TRACE mg/dL (NEGATIVE); URINE UROBILINOGEN NORMAL (NORMAL); URINE WBC 0-1 /hpf (0-3)
[2020-10-15 13:39] LABS: ERYTHROCYTE SEDIMENTATION RATE 13 mm/hr (0-30)
[2020-10-15 14:48] VITALS: BP 168/88
== END 2020-10-15 14:46 | disposition home or self-care (01) ==
LOC: ED 12:12
PROVIDERS: Physician Assistant
DX: R10.31 Right lower quadrant pain (principal); I10 Essential (primary) hypertension; J45.909 Unspecified asthma, uncomplicated; F41.9 Anxiety disorder, unspecified; F32.9 Major depressive disorder, single episode, unspecified; F17.210 Nicotine dependence, cigarettes, uncomplicated; Z85.3 Personal history of malignant neoplasm of breast; Z90.12 Acquired absence of left breast and nipple; Z90.89 Acquired absence of other organs; Z88.1 Allergy status to other antibiotic agents; Z88.6 Allergy status to analgesic agent; Z88.8 Allergy status to other drugs, medicaments and biological substances; Z79.51 Long term (current) use of inhaled steroids
CPT/HCPCS: J7030; Q9967

== ENCOUNTER → 2020-10-30 | Outpatient (CLI) | payer MEDICARE, MEDICAID ==
[2020-10-15 14:48] VITALS: BP 168/88
== END ==
LOC: RAD 09-24 15:28
DX: M50.123 Cervical disc disorder at C6-C7 level with radiculopathy (principal); S42.201A Unspecified fracture of upper end of right humerus, initial encounter for closed fracture; M75.111 Incomplete rotator cuff tear or rupture of right shoulder, not specified as traumatic; M48.02 Spinal stenosis, cervical region; M87.821 Other osteonecrosis, right humerus; M67.813 Other specified disorders of tendon, right shoulder

== ENCOUNTER → 2021-02-07 | Outpatient (CLI) | payer MEDICARE, MEDICAID ==
[~2021-02-07] MED LIST changes: +BUDESONIDE0.5 MG/2 M IH; +COLESTID 1GM1 G PO; +DECADRON6 M1 PO; +DOXYCYCLINE MO100 M3 PO; +FISH OIL 500 M1 EAC1 PO; +FLUTICASON0.05 MG/AC NS; +IMODIUM A-D2 M3 PO; +NEURONTIN600 M1 PO; +NYSTATIN15 G1 TP; +ONDANSETRON HYDR4 MG PO; +TYLENOL 325MG325 MG PO; +VITAMIN D3125 MC4 PO
== END ==
LOC: LAB 16:11
DX: J06.9 Acute upper respiratory infection, unspecified (principal); Z20.822 Contact with and (suspected) exposure to COVID-19

== ENCOUNTER → 2021-02-11 | Outpatient (CLI) | payer MEDICARE, MEDICAID | LOC: RAD 08:26 | DX: S92.511A Displaced fracture of proximal phalanx of right lesser toe(s), initial encounter for closed fracture (principal) ==

== ENCOUNTER → 2021-03-15 | Outpatient (CLI) | payer MEDICARE, MEDICAID ==
[2021-03-15 12:17] LABS: BASO # 0.07 (0.02-0.10); EOS # 0.14 (0.04-0.40); EOS % 1.4 % (1.0-5.0); HEMOGLOBIN 14.1 g/dL (12.5-16.0); MEAN CELL VOLUME 91 fl (78-100); MEAN CORPUSCULAR HEMOGLOBIN 29 pg (27-31); MEAN CORPUSCULAR HGB CONC 32 g/dL (33-37); MEAN PLATELET VOLUME 10.3 fl (7.4-10.4); PLATELET COUNT 202 K/mm3 (130-400); RED BLOOD COUNT 4.83 M/mm3 (4.10-5.30); RED CELL DISTRIBUTION WIDTH 13.9 % (11.5-14.5); WHITE BLOOD COUNT 10.1 K/mm3 (4.8-10.8)
[2021-03-15 12:23] LABS: POTASSIUM 4.7 mmol/L (3.5-5.1)
[2021-03-15 12:24] LABS: CALCIUM 9.4 mg/dL (8.3-10.5)
== END ==
LOC: RAD 11:54 → LAB 11:54
PROVIDERS: Family Medicine
DX: J44.9 Chronic obstructive pulmonary disease, unspecified (principal); Z87.81 Personal history of (healed) traumatic fracture; Z96.89 Presence of other specified functional implants

== ENCOUNTER 2021-03-24 13:02 | Emergency (ER) | payer MEDICARE, MEDICAID ==
[~2021-03-24 13:02] MED LIST changes: -BUDESONIDE0.5 MG/2 M IH; -COLESTID 1GM1 G PO; -DECADRON6 M1 PO; -DOXYCYCLINE MO100 M3 PO; -FISH OIL 500 M1 EAC1 PO; -FLUTICASON0.05 MG/AC NS; -IMODIUM A-D2 M3 PO; -NEURONTIN600 M1 PO; -NYSTATIN15 G1 TP; -ONDANSETRON HYDR4 MG PO; -TYLENOL 325MG325 MG PO; -VITAMIN D3125 MC4 PO
[2021-03-24 13:55] VITALS: BP 148/68
== END 2021-03-24 13:55 | disposition home or self-care (01) ==
LOC: ED 13:02
DX: M79.7 Fibromyalgia (principal); G62.9 Polyneuropathy, unspecified; I10 Essential (primary) hypertension; E78.5 Hyperlipidemia, unspecified; K21.9 Gastro-esophageal reflux disease without esophagitis; J44.9 Chronic obstructive pulmonary disease, unspecified; Z79.899 Other long term (current) drug therapy; Z79.51 Long term (current) use of inhaled steroids
CPT/HCPCS: J3301

== ENCOUNTER → 2021-04-05 | Outpatient (CLI) | payer MEDICARE, MEDICAID ==
[2021-03-24 13:55] VITALS: BP 148/68
[~2021-04-05] MED LIST changes: +BUDESONIDE0.5 MG/2 M IH; +COLESTID 1GM1 G PO; +DECADRON6 M1 PO; +DOXYCYCLINE MO100 M3 PO; +FISH OIL 500 M1 EAC1 PO; +FLUTICASON0.05 MG/AC NS; +IMODIUM A-D2 M3 PO; +NEURONTIN600 M1 PO; +NYSTATIN15 G1 TP; +ONDANSETRON HYDR4 MG PO; +TYLENOL 325MG325 MG PO; +VITAMIN D3125 MC4 PO
== END ==
LOC: RAD 10:51
DX: M25.562 Pain in left knee (principal)

== ENCOUNTER → 2021-07-22 | Outpatient (CLI) | payer MEDICARE, MEDICAID ==
[2021-07-22 10:49] LABS: ALBUMIN 3.5 g/dL (3.4-4.8); POTASSIUM 4.5 mmol/L (3.5-5.1)
[2021-07-22 10:50] LABS: CALCIUM 9.7 mg/dL (8.3-10.5)
[2021-07-22 10:51] LABS: TOTAL PROTEIN 6.6 g/dL (6.2-8.1)
[2021-07-22 10:53] LABS: TOTAL BILIRUBIN 1.4 mg/dL (0.2-1.2)
== END ==
LOC: LAB 09:48
PROVIDERS: Family Medicine
DX: Z13.1 Encounter for screening for diabetes mellitus (principal); I10 Essential (primary) hypertension; E78.00 Pure hypercholesterolemia, unspecified; E55.9 Vitamin D deficiency, unspecified; J06.9 Acute upper respiratory infection, unspecified; Z20.822 Contact with and (suspected) exposure to COVID-19

== ENCOUNTER 2021-07-27 01:58 | Emergency (ER) | payer MEDICARE, MEDICAID ==
[~2021-07-27] VITALS: Ht 175.3 cm; Wt 81.8 kg
[~2021-07-27 01:58] MED LIST changes: -BUDESONIDE0.5 MG/2 M IH; -COLESTID 1GM1 G PO; -DECADRON6 M1 PO; -DOXYCYCLINE MO100 M3 PO; -FISH OIL 500 M1 EAC1 PO; -FLUTICASON0.05 MG/AC NS; -IMODIUM A-D2 M3 PO; -NEURONTIN600 M1 PO; -NYSTATIN15 G1 TP; -ONDANSETRON HYDR4 MG PO; -TYLENOL 325MG325 MG PO; -VITAMIN D3125 MC4 PO
[2021-07-27] MEDS ORDERED: NORCO 325 MG-51 TA1 PO (07:21)
[2021-07-27 08:05] VITALS: BP 147/86
== END 2021-07-27 08:10 | disposition home or self-care (01) ==
LOC: ED 01:58
DX: S52.592A Other fractures of lower end of left radius, initial encounter for closed fracture (principal); S52.602A Unspecified fracture of lower end of left ulna, initial encounter for closed fracture; M94.0 Chondrocostal junction syndrome [Tietze]; F41.9 Anxiety disorder, unspecified; F32.A Depression, unspecified; E78.5 Hyperlipidemia, unspecified; F17.200 Nicotine dependence, unspecified, uncomplicated; Z79.899 Other long term (current) drug therapy; W01.0XXA Fall on same level from slipping, tripping and stumbling without subsequent striking against object, initial encounter; Y92.009 Unspecified place in unspecified non-institutional (private) residence as the place of occurrence of the external cause

== ENCOUNTER → 2021-07-29 | Outpatient (CLI) | payer MEDICARE, MEDICAID ==
[~2021-07-29] MED LIST changes: +BUDESONIDE0.5 MG/2 M IH; +COLESTID 1GM1 G PO; +DECADRON6 M1 PO; +DOXYCYCLINE MO100 M3 PO; +FISH OIL 500 M1 EAC1 PO; +FLUTICASON0.05 MG/AC NS; +IMODIUM A-D2 M3 PO; +NEURONTIN600 M1 PO; +NYSTATIN15 G1 TP; +ONDANSETRON HYDR4 MG PO; +TYLENOL 325MG325 MG PO; +VITAMIN D3125 MC4 PO
== END ==
LOC: LAB 15:40
DX: J20.9 Acute bronchitis, unspecified (principal); Z20.822 Contact with and (suspected) exposure to COVID-19

== ENCOUNTER 2021-08-03 15:46 | Emergency (ER) | payer MEDICARE, MEDICAID ==
[~2021-08-03] VITALS: Ht 167.6 cm; Wt 86.8 kg
[~2021-08-03 15:46] MED LIST changes: -BUDESONIDE0.5 MG/2 M IH; -COLESTID 1GM1 G PO; -DECADRON6 M1 PO; -DOXYCYCLINE MO100 M3 PO; -FISH OIL 500 M1 EAC1 PO; -FLUTICASON0.05 MG/AC NS; -IMODIUM A-D2 M3 PO; -NEURONTIN600 M1 PO; -NYSTATIN15 G1 TP; -ONDANSETRON HYDR4 MG PO; -TYLENOL 325MG325 MG PO; -VITAMIN D3125 MC4 PO
[2021-08-03 16:25] LABS: HEMATOCRIT 47.8 % (37.0-47.0); MEAN CELL VOLUME 91 fl (78-100); MEAN CORPUSCULAR HEMOGLOBIN 31 pg (27-31); MEAN CORPUSCULAR HGB CONC 34 g/dL (33-37); MEAN PLATELET VOLUME 10.3 fl (7.4-10.4); PLATELET COUNT 299 K/mm3 (130-400); RED BLOOD COUNT 5.24 M/mm3 (4.10-5.30); RED CELL DISTRIBUTION WIDTH 14.3 % (11.5-14.5)
[2021-08-03 16:33] LABS: WHITE BLOOD COUNT 31.3 K/mm3 (4.8-10.8)
[2021-08-03 16:34] LABS: ALBUMIN 3.4 g/dL (3.4-4.8)
[2021-08-03 16:35] LABS: POTASSIUM 4.3 mmol/L (3.5-5.1)
[2021-08-03 16:36] LABS: CALCIUM 10.6 mg/dL (8.3-10.5)
[2021-08-03 16:37] LABS: TOTAL PROTEIN 6.4 g/dL (6.2-8.1)
[2021-08-03 17:06] LABS: BAND 9 % (0-10); LYMPHOCYTE 7 % (20-51); MONOCYTE 7 % (3-10); NEUTROPHILS 77 % (42-75)
[2021-08-03] MEDS ORDERED: BUDESONIDE0.5 MG/2 M IH (17:41)
[2021-08-03] MEDS ORDERED: DOXYCYCLINE MO100 M3 PO (17:42)
[2021-08-03] MEDS ORDERED: FISH OIL 500 M1 EAC1 PO (17:44)
[2021-08-03] MEDS ORDERED: FLUTICASON0.05 MG/AC NS (17:46)
[2021-08-03] MEDS ORDERED: NEURONTIN600 M1 PO (17:47)
[2021-08-03] MEDS ORDERED: ONDANSETRON HYDR4 MG PO (17:51)
[2021-08-03 17:52] LABS: D-DIMER 6.15 mg/L FEU (0.15-0.50)
[2021-08-03] MEDS ORDERED: VITAMIN D3125 MC4 PO (17:52)
[2021-08-03 21:22] VITALS: BP 100/68
== END 2021-08-03 21:33 | disposition short-term general hospital (02) ==
LOC: ED 15:46
PROVIDERS: Physician Assistant
DX: N17.9 Acute kidney failure, unspecified (principal); J69.0 Pneumonitis due to inhalation of food and vomit; E87.8 Other disorders of electrolyte and fluid balance, not elsewhere classified; E87.2 Acidosis; D72.829 Elevated white blood cell count, unspecified; E87.3 Alkalosis; K56.609 Unspecified intestinal obstruction, unspecified as to partial versus complete obstruction; F32.A Depression, unspecified; F41.9 Anxiety disorder, unspecified; J44.9 Chronic obstructive pulmonary disease, unspecified; Z20.822 Contact with and (suspected) exposure to COVID-19; Z79.899 Other long term (current) drug therapy
CPT/HCPCS: J2405; J2543; J7030; J7040

== ENCOUNTER → 2021-08-06 | Outpatient (REF) ==
[~2021-08-06] MED LIST changes: +BUDESONIDE0.5 MG/2 M IH; +COLESTID 1GM1 G PO; +DECADRON6 M1 PO; +DOXYCYCLINE MO100 M3 PO; +FISH OIL 500 M1 EAC1 PO; +FLUTICASON0.05 MG/AC NS; +IMODIUM A-D2 M3 PO; +NEURONTIN600 M1 PO; +NYSTATIN15 G1 TP; +ONDANSETRON HYDR4 MG PO; +TYLENOL 325MG325 MG PO; +VITAMIN D3125 MC4 PO
[2021-08-06 12:47] LABS: ALBUMIN 2.5 g/dL (3.4-4.8); POTASSIUM 3.8 mmol/L (3.5-5.1)
[2021-08-06 12:48] LABS: CALCIUM 8.7 mg/dL (8.3-10.5)
[2021-08-06 12:50] LABS: TOTAL PROTEIN 4.8 g/dL (6.2-8.1)
[2021-08-06 12:51] LABS: TOTAL BILIRUBIN 2.7 mg/dL (0.2-1.2)
== END ==
LOC: LAB 10:20
DX: Z01.89 Encounter for other specified special examinations (principal)

== ENCOUNTER → 2021-08-17 | Outpatient (REF) | LOC: LAB 07:22 | DX: R19.5 Other fecal abnormalities (principal) ==

== ENCOUNTER 2021-09-03 15:11 | Emergency (ER) | payer MEDICARE, MEDICAID ==
[~2021-09-03 15:11] MED LIST changes: -COLESTID 1GM1 G PO; -DECADRON6 M1 PO; -IMODIUM A-D2 M3 PO; -NYSTATIN15 G1 TP; -TYLENOL 325MG325 MG PO
[2021-09-03 16:53] LABS: BASO # 0.02 K/mm3 (0.02-0.10); EOS # 0.01 K/mm3 (0.04-0.40); EOS % 0.2 % (1.0-5.0); HEMATOCRIT 41.3 % (37.0-47.0); LYMPH# 0.89 K/mm3 (1.50-4.00); MEAN CELL VOLUME 96 fl (78-100); MEAN CORPUSCULAR HEMOGLOBIN 30 pg (27-31); MEAN CORPUSCULAR HGB CONC 32 g/dL (33-37); MEAN PLATELET VOLUME 9.9 fl (7.4-10.4); MONO # 0.25 K/mm3 (0.20-0.80); NEU # 3.14 K/mm3 (1.40-6.50); PLATELET COUNT 137 K/mm3 (130-400); RED CELL DISTRIBUTION WIDTH 15.4 % (11.5-14.5); WHITE BLOOD COUNT 4.3 K/mm3 (4.8-10.8)
[2021-09-03 17:00] LABS: ALBUMIN 2.9 g/dL (3.4-4.8); POTASSIUM 3.7 mmol/L (3.5-5.1); SODIUM 140 mmol/L (136-145)
[2021-09-03 17:01] LABS: CALCIUM 8.3 mg/dL (8.3-10.5)
[2021-09-03 17:02] LABS: GLUCOSE 130 mg/dL (65-105); TOTAL PROTEIN 6.1 g/dL (6.2-8.1)
[2021-09-03 17:04] LABS: CARBON DIOXIDE 29 mmol/L (23-31); TOTAL BILIRUBIN 0.6 mg/dL (0.2-1.2)
[2021-09-03 17:08] LABS: AST-SGOT 66 U/L (5-34)
[2021-09-03 17:09] LABS: ALT/SGPT 17 U/L (0-55)
[2021-09-03 17:17] LABS: TROPONIN-I < 0.03 ng/mL (<0.030)
[2021-09-03 17:49] LABS: D-DIMER 0.87 mg/L FEU (0.15-0.50)
[2021-09-03] MEDS ORDERED: COLESTID 1GM1 G PO (17:50)
[2021-09-03] MEDS ORDERED: DECADRON6 M1 PO (18:58)
[2021-09-03] MEDS ORDERED: VIBRAMYCIN HYC100 MG PO (18:58)
[2021-09-03] MEDS ORDERED: IMODIUM A-D2 M3 PO (19:04)
[2021-09-03] MEDS ORDERED: NYSTATIN15 G1 TP (19:07)
[2021-09-03] MEDS ORDERED: TYLENOL 325MG325 MG PO (19:10)
[2021-09-03 21:27] VITALS: BP 138/74
== END 2021-09-03 21:27 | disposition other institution (70) ==
LOC: ED 15:11
PROVIDERS: Nurse Practitioner Family
DX: U07.1 COVID-19 (principal); J96.91 Respiratory failure, unspecified with hypoxia; J96.92 Respiratory failure, unspecified with hypercapnia; R79.0 Abnormal level of blood mineral; E78.5 Hyperlipidemia, unspecified; K21.9 Gastro-esophageal reflux disease without esophagitis; F32.A Depression, unspecified; F41.9 Anxiety disorder, unspecified; I10 Essential (primary) hypertension; E11.9 Type 2 diabetes mellitus without complications; Z73.0 Burn-out; Z79.899 Other long term (current) drug therapy
CPT/HCPCS: Q9967

== ENCOUNTER 2021-09-03 21:27 | Inpatient (IN) | payer MEDICARE, MEDICAID ==
[~2021-09-03] VITALS: Ht 175.3 cm; Wt 81.0 kg
[~2021-09-03 21:27] MED LIST changes: +COLESTID 1GM1 G PO; +DECADRON6 M1 PO; +IMODIUM A-D2 M3 PO; +NYSTATIN15 G1 TP; +TYLENOL 325MG325 MG PO
[2021-09-04 02:23] VITALS: BP 158/92
[2021-09-04 06:01] VITALS: BP 164/82
[2021-09-04 10:13] VITALS: BP 155/87
[2021-09-04 12:13] LABS: HEMATOCRIT 36.8 % (37.0-47.0); HEMOGLOBIN 11.7 g/dL (12.5-16.0); LYMPH# 0.71 K/mm3 (1.50-4.00); MEAN CELL VOLUME 94 fl (78-100); MEAN CORPUSCULAR HEMOGLOBIN 30 pg (27-31); MEAN CORPUSCULAR HGB CONC 32 g/dL (33-37); MEAN PLATELET VOLUME 9.8 fl (7.4-10.4); MONO # 0.21 K/mm3 (0.20-0.80); NEU # 2.05 K/mm3 (1.40-6.50); PLATELET COUNT 105 K/mm3 (130-400); RED CELL DISTRIBUTION WIDTH 15.3 % (11.5-14.5)
[2021-09-04 12:19] LABS: ALBUMIN 2.7 g/dL (3.4-4.8); POTASSIUM 3.4 mmol/L (3.5-5.1)
[2021-09-04 12:20] LABS: CALCIUM 8.1 mg/dL (8.3-10.5)
[2021-09-04 12:22] LABS: TOTAL PROTEIN 5.6 g/dL (6.2-8.1)
[2021-09-04 12:23] LABS: TOTAL BILIRUBIN 0.6 mg/dL (0.2-1.2)
[2021-09-04 14:08] VITALS: BP 146/76
[2021-09-04 17:40] LABS: URINE APPEARANCE CLEAR; URINE BILIRUBIN NEGATIVE (NEGATIVE); URINE BLOOD TRACE (NEGATIVE); URINE COLOR YELLOW; URINE GLUCOSE NEGATIVE (NEGATIVE); URINE KETONE NEGATIVE (NEGATIVE); URINE LEUKOCYTE ESTERASE TRACE (NEGATIVE); URINE NITRATE NEGATIVE (NEGATIVE); URINE PROTEIN(semi-quant) 1+ mg/dL (NEGATIVE); URINE UROBILINOGEN NORMAL (NORMAL)
[2021-09-04 17:41] LABS: URINE MUCUS PRESENT (NOT PRESENT)
[2021-09-04 18:00] VITALS: BP 163/84
[2021-09-04 22:33] VITALS: BP 176/92
[2021-09-05] VITALS (7 sets, daily range): BP systolic 133–193; BP diastolic 69–108
[2021-09-05 11:33] LABS: HEMATOCRIT 37.1 % (37.0-47.0); HEMOGLOBIN 11.5 g/dL (12.5-16.0); LYMPH# 0.83 K/mm3 (1.50-4.00); MEAN CELL VOLUME 97 fl (78-100); MEAN CORPUSCULAR HEMOGLOBIN 30 pg (27-31); MEAN CORPUSCULAR HGB CONC 31 g/dL (33-37); MEAN PLATELET VOLUME 10.1 fl (7.4-10.4); MONO # 0.33 K/mm3 (0.20-0.80); NEU # 2.03 K/mm3 (1.40-6.50); RED BLOOD COUNT 3.84 M/mm3 (4.10-5.30); RED CELL DISTRIBUTION WIDTH 15.2 % (11.5-14.5); WHITE BLOOD COUNT 3.2 K/mm3 (4.8-10.8)
[2021-09-05 11:48] LABS: ALBUMIN 2.6 g/dL (3.4-4.8); POTASSIUM 3.6 mmol/L (3.5-5.1)
[2021-09-05 11:50] LABS: CALCIUM 8.1 mg/dL (8.3-10.5)
[2021-09-05 11:51] LABS: TOTAL PROTEIN 5.5 g/dL (6.2-8.1)
[2021-09-05 11:53] LABS: TOTAL BILIRUBIN 0.4 mg/dL (0.2-1.2)
[2021-09-05 12:18] LABS: PLATELET COUNT 92 K/mm3 (130-400)
[2021-09-06 02:43] VITALS: BP 180/100
[2021-09-06 05:49] VITALS: BP 174/94
[2021-09-06 09:44] VITALS: BP 139/74
[2021-09-06 11:26] LABS: BASO # 0.01 K/mm3 (0.02-0.10); HEMATOCRIT 37.2 % (37.0-47.0); HEMOGLOBIN 11.5 g/dL (12.5-16.0); LYMPH# 1.13 K/mm3 (1.50-4.00); MEAN CELL VOLUME 96 fl (78-100); MEAN CORPUSCULAR HEMOGLOBIN 30 pg (27-31); MEAN CORPUSCULAR HGB CONC 31 g/dL (33-37); MEAN PLATELET VOLUME 10.3 fl (7.4-10.4); MONO # 0.22 K/mm3 (0.20-0.80); NEU # 1.61 K/mm3 (1.40-6.50); PLATELET COUNT 84 K/mm3 (130-400); RED BLOOD COUNT 3.89 M/mm3 (4.10-5.30); RED CELL DISTRIBUTION WIDTH 15.3 % (11.5-14.5)
[2021-09-06 11:39] LABS: ALBUMIN 2.5 g/dL (3.4-4.8)
[2021-09-06 11:40] LABS: POTASSIUM 3.4 mmol/L (3.5-5.1)
[2021-09-06 11:42] LABS: TOTAL PROTEIN 5.3 g/dL (6.2-8.1)
[2021-09-06 11:44] LABS: TOTAL BILIRUBIN 0.5 mg/dL (0.2-1.2)
[2021-09-06 13:35] VITALS: BP 141/77
[2021-09-06 17:55] VITALS: BP 171/92
[2021-09-06 21:44] VITALS: BP 166/85
[2021-09-07 02:38] VITALS: BP 158/83
[2021-09-07 05:42] VITALS: BP 176/94
[2021-09-07 08:59] LABS: ALBUMIN 2.6 g/dL (3.4-4.8); POTASSIUM 3.6 mmol/L (3.5-5.1)
[2021-09-07 09:00] LABS: CALCIUM 8.2 mg/dL (8.3-10.5)
[2021-09-07 09:01] LABS: TOTAL PROTEIN 5.4 g/dL (6.2-8.1)
[2021-09-07 09:03] LABS: TOTAL BILIRUBIN 0.6 mg/dL (0.2-1.2)
[2021-09-07 09:16] LABS: EOS # 0.01 K/mm3 (0.04-0.40); EOS % 0.3 % (1.0-5.0); HEMATOCRIT 38.4 % (37.0-47.0); HEMOGLOBIN 12.2 g/dL (12.5-16.0); LYMPH# 1.61 K/mm3 (1.50-4.00); MEAN CELL VOLUME 94 fl (78-100); MEAN CORPUSCULAR HEMOGLOBIN 30 pg (27-31); MEAN CORPUSCULAR HGB CONC 32 g/dL (33-37); MEAN PLATELET VOLUME 9.7 fl (7.4-10.4); MONO # 0.33 K/mm3 (0.20-0.80); NEU # 1.37 K/mm3 (1.40-6.50); PLATELET COUNT 85 K/mm3 (130-400); RED BLOOD COUNT 4.07 M/mm3 (4.10-5.30); RED CELL DISTRIBUTION WIDTH 14.9 % (11.5-14.5); WHITE BLOOD COUNT 3.3 K/mm3 (4.8-10.8)
[2021-09-07 10:04] VITALS: BP 173/94
[2021-09-07 13:24] VITALS: BP 162/89
[2021-09-07 18:04] VITALS: BP 144/83
[2021-09-07 23:07] VITALS: BP 145/79
[2021-09-08 01:50] VITALS: BP 165/85
[2021-09-08 05:51] VITALS: BP 170/90
[2021-09-08 09:54] LABS: BASO # 0.01 K/mm3 (0.02-0.10); EOS # 0.11 K/mm3 (0.04-0.40); EOS % 2.2 % (1.0-5.0); HEMATOCRIT 39.7 % (37.0-47.0); HEMOGLOBIN 12.5 g/dL (12.5-16.0); LYMPH# 2.05 K/mm3 (1.50-4.00); MEAN CELL VOLUME 95 fl (78-100); MEAN CORPUSCULAR HEMOGLOBIN 30 pg (27-31); MEAN CORPUSCULAR HGB CONC 32 g/dL (33-37); MEAN PLATELET VOLUME 10.4 fl (7.4-10.4); MONO # 0.35 K/mm3 (0.20-0.80); NEU # 2.55 K/mm3 (1.40-6.50); PLATELET COUNT 97 K/mm3 (130-400); RED BLOOD COUNT 4.17 M/mm3 (4.10-5.30); RED CELL DISTRIBUTION WIDTH 15.1 % (11.5-14.5); WHITE BLOOD COUNT 5.1 K/mm3 (4.8-10.8)
[2021-09-08 09:58] LABS: ALBUMIN 2.6 g/dL (3.4-4.8); POTASSIUM 3.8 mmol/L (3.5-5.1)
[2021-09-08 10:00] LABS: TOTAL PROTEIN 5.3 g/dL (6.2-8.1)
[2021-09-08 10:02] LABS: TOTAL BILIRUBIN 0.8 mg/dL (0.2-1.2)
[2021-09-08 10:10] VITALS: BP 163/81
[2021-09-08 14:08] VITALS: BP 149/83
[2021-09-08 18:00] VITALS: BP 139/73
[2021-09-08 20:53] VITALS: BP 162/83
[2021-09-09 01:52] VITALS: BP 166/88
[2021-09-09 06:00] VITALS: BP 179/93
[2021-09-09 09:54] VITALS: BP 135/85
[2021-09-09 10:05] LABS: BASO # 0.02 K/mm3 (0.02-0.10); EOS # 0.15 K/mm3 (0.04-0.40); EOS % 3.2 % (1.0-5.0); HEMOGLOBIN 12.8 g/dL (12.5-16.0); LYMPH# 1.64 K/mm3 (1.50-4.00); MEAN CELL VOLUME 97 fl (78-100); MEAN CORPUSCULAR HEMOGLOBIN 30 pg (27-31); MEAN CORPUSCULAR HGB CONC 31 g/dL (33-37); MEAN PLATELET VOLUME 10.2 fl (7.4-10.4); MONO # 0.36 K/mm3 (0.20-0.80); NEU # 2.56 K/mm3 (1.40-6.50); PLATELET COUNT 96 K/mm3 (130-400); RED BLOOD COUNT 4.25 M/mm3 (4.10-5.30); RED CELL DISTRIBUTION WIDTH 15.1 % (11.5-14.5); WHITE BLOOD COUNT 4.7 K/mm3 (4.8-10.8)
[2021-09-09 10:16] LABS: ALBUMIN 2.5 g/dL (3.4-4.8)
[2021-09-09 10:17] LABS: POTASSIUM 3.9 mmol/L (3.5-5.1)
[2021-09-09 10:19] LABS: TOTAL PROTEIN 5.3 g/dL (6.2-8.1)
[2021-09-09 10:21] LABS: TOTAL BILIRUBIN 1.1 mg/dL (0.2-1.2)
== END 2021-09-09 12:00 | DRG 177 ==
LOC: MED/SURG 21:27
PROVIDERS: Physician Assistant; ADMIT Nurse Practitioner Family
PROC: XW033E5 Introduction of Remdesivir Anti-infective into Peripheral Vein, Percutaneous Approach, New Technology Group 5 (ICD-10-PCS; principal; 2021-09-04)
DX: U07.1 COVID-19 (principal); J96.02 Acute respiratory failure with hypercapnia; J96.01 Acute respiratory failure with hypoxia; I10 Essential (primary) hypertension; K73.9 Chronic hepatitis, unspecified; E11.42 Type 2 diabetes mellitus with diabetic polyneuropathy; M79.7 Fibromyalgia; K21.9 Gastro-esophageal reflux disease without esophagitis; F41.9 Anxiety disorder, unspecified; F32.A Depression, unspecified; R19.7 Diarrhea, unspecified; R63.0 Anorexia; E87.6 Hypokalemia; E78.5 Hyperlipidemia, unspecified; F17.210 Nicotine dependence, cigarettes, uncomplicated; R51.9 Headache, unspecified; Z90.710 Acquired absence of both cervix and uterus; Z98.1 Arthrodesis status; Z85.3 Personal history of malignant neoplasm of breast; Z88.6 Allergy status to analgesic agent; Z73.0 Burn-out
CPT/HCPCS: J0696; J1100; J1650; J7030; J7050

== ENCOUNTER 2021-10-17 19:41 | Emergency (ER) | payer MEDICARE, MEDICAID ==
[~2021-10-17] VITALS: Ht 175.3 cm; Wt 80.8 kg
[2021-10-17] MEDS ORDERED: DULCOLAX S10 MG/SUPP RC (20:14)
[2021-10-17] MEDS ORDERED: FLEET ENEM1 BOT/133 RC (20:15)
[2021-10-17] MEDS ORDERED: KLONOPIN 0.5MG0.5 MG PO (20:19)
[2021-10-17] MEDS ORDERED: GOOD NEIGH1200 MG/15 PO (20:23)
[2021-10-17 22:07] VITALS: BP 152/80
== END 2021-10-17 22:07 | disposition home or self-care (01) ==
LOC: ED 19:41
DX: S92.352A Displaced fracture of fifth metatarsal bone, left foot, initial encounter for closed fracture (principal); S00.03XA Contusion of scalp, initial encounter; F41.8 Other specified anxiety disorders; I10 Essential (primary) hypertension; Z79.899 Other long term (current) drug therapy; W01.198A Fall on same level from slipping, tripping and stumbling with subsequent striking against other object, initial encounter; Y92.002 Bathroom of unspecified non-institutional (private) residence as the place of occurrence of the external cause

== ENCOUNTER 2021-10-20 10:47 | Emergency (ER) | payer MEDICARE, MEDICAID ==
[~2021-10-20] VITALS: Ht 175.3 cm; Wt 80.8 kg
[~2021-10-20 10:47] MED LIST changes: +DULCOLAX S10 MG/SUPP RC; +GOOD NEIGH1200 MG/15 PO
[2021-10-20] MEDS ORDERED: CEPHALEXIN500 M2 PO (16:00)
[2021-10-20 16:29] VITALS: BP 118/80
== END 2021-10-20 16:34 ==
LOC: ED 10:47
DX: L03.115 Cellulitis of right lower limb (principal); R60.0 Localized edema; F41.8 Other specified anxiety disorders; I10 Essential (primary) hypertension; Z99.3 Dependence on wheelchair; Z87.891 Personal history of nicotine dependence; Z79.899 Other long term (current) drug therapy

== ENCOUNTER → 2021-11-07 | Outpatient (CLI) | payer MEDICARE, MEDICAID ==
[~2021-11-07] MED LIST changes: +CEPHALEXIN500 M2 PO; +MAGNESIUM OXID400 M1 PO; +QUALITY CHOICE80 MG PO
[2021-11-07 10:21] LABS: PH-URINE 5.5 (5.0 - 8.0); URINE APPEARANCE CLEAR; URINE BILIRUBIN NEGATIVE (NEGATIVE); URINE BLOOD NEGATIVE (NEGATIVE); URINE COLOR YELLOW; URINE GLUCOSE NEGATIVE (NEGATIVE); URINE KETONE NEGATIVE (NEGATIVE); URINE LEUKOCYTE ESTERASE NEGATIVE (NEGATIVE); URINE NITRATE NEGATIVE (NEGATIVE); URINE PROTEIN(semi-quant) 1+ (NEGATIVE); URINE UROBILINOGEN NORMAL (NORMAL)
== END ==
LOC: LAB 10:01
PROVIDERS: Family Medicine
DX: R52 Pain, unspecified (principal)

== ENCOUNTER → 2021-11-14 | Outpatient (CLI) | payer MEDICARE, MEDICAID | LOC: LAB 21:15 | DX: R52 Pain, unspecified (principal) ==

== ENCOUNTER 2021-11-15 15:14 | Inpatient (IN) | payer MEDICARE, MEDICAID ==
[~2021-11-15] VITALS: Ht 175.3 cm; Wt 74.2 kg
[~2021-11-15 15:14] MED LIST changes: -MAGNESIUM OXID400 M1 PO; -QUALITY CHOICE80 MG PO
[2021-11-15] MEDS ORDERED: QUALITY CHOICE80 MG PO (16:22)
--- NOTE | 2021-11-15 16:30 | NUR ---
ADMIT TO ROOM [facility] PER W/C. REPORTS DIARRHEA X3 TODAY AND PERSISTANT FOR THE LAST TEN DAYS. NAUSEA PRESENT. DID HAVE VOMITTING X5 DAYS AT THE BEGINNING OF HER ILLNESS. DENIES ABD PAIN; NO ABD TENDERNESS NOTED. PATIENT VOICES THAT SHE WOULD LIKE TO DISCHARGE HOME FROM HERE RATHER THAN RETURN TO [facility]. STATES "THEIR FOOD MAKES ME GAG." ORIENT TO ROOM. CALL LIGHT IN REACH AND BED ALARM IN PLACE. SHE WOULD LIKE TO TRY AND EAT SUPPER.
[2021-11-15 16:48] LABS: MAGNESIUM 1.12 mg/dL (1.60-2.60)
[2021-11-15 16:57] VITALS: BP 141/75
--- NOTE | 2021-11-15 17:27 | NUR ---
IV POTASSIUM STARTED. PATIENT REPORTS INFUSION JESUS ARM. SLOW INFUSION TO 50ML/HR; THIS DOES NOT HELP. DISCUSS SITUATION WITH CAROLYN ESCUDERO. VERBAL ORDER RECEIVED TO RUN NS 500ML BAG AT 50ML/HR WITH POTASSIUM INFUSION. DC NS INFUSION WHEN IV POTASSIUM INFUSIONS COMPLETE.
--- NOTE | 2021-11-15 19:01 | NUR ---
REPORT PROVIDED TO SUSANNA CANELA.
--- NOTE | 2021-11-15 19:18 | NUR ---
Report received from Miri HENSON. Patient sitting up in bed watching TV. First bag of IV potassium completed. New bag hung, rate increased to 75 ML/HR. Site patent to R zehra arm. A/O x4. Rates pain (rumbling) to abdominal area 04/04. Has loose stool at shift change. Denies nausea. Assessment completed. Denies wants or needs. Bed alarm on. Call light in reach.
[2021-11-15 20:08] LABS: CALCIUM 8.3 mg/dL (8.3-10.5)
[2021-11-15 20:17] LABS: POTASSIUM 2.5 mmol/L (3.5-5.1)
--- NOTE | 2021-11-15 20:52 | NUR ---
Potassium 2.5. Reported to provider. 3rd bag started at this time. Running at 100 ML/HR. Patient refused nebulizer tx. Provider aware.
[2021-11-15 21:14] VITALS: BP 142/81
--- NOTE | 2021-11-15 21:37 | NUR ---
4th bag of IV Potassium hung and rate increased to 100 ML/HR. Patient sleeping and has tolerated rate increase without complaints of burning. IVF of NS also infusing at 50 ML/HR.
[2021-11-15 22:00] VITALS: BP 142/81
--- NOTE | 2021-11-15 22:43 | NUR ---
IV Potasium completed. IV locked. Awake and states her stomach is "starting to hurt". Offered and refused Tylenol. "that will tear my stomach up". "I took something earlier that helped". States Zofran when medications listed. Zofran ODT given at this time.
--- NOTE | 2021-11-16 01:11 | NUR ---
Resting quietly with eyes closed, no signs of pain or distress. Bed alarm on. Call light in reach.
[2021-11-16 02:28] VITALS: BP 127/80
--- NOTE | 2021-11-16 02:28 | NUR ---
Incontinent of bladder, trace loose BM. Pericares provided. Repositoned in bed. Denies pain, wants or needs.
--- NOTE | 2021-11-16 04:59 | NUR ---
Remains resting quietly with eyes closed. No signs of pain or distress. Bed alarm. Call light in reach.
--- NOTE | 2021-11-16 06:06 | NUR ---
Rested well. Incontinent of urine. Shannan cares provided. Cath UA obtained. Lab in to draw BMP. Repositoned. Bed alarm on. Call light in reach.
[2021-11-16 06:13] VITALS: BP 131/75
[2021-11-16 06:19] LABS: CALCIUM 8.5 mg/dL (8.3-10.5)
--- NOTE | 2021-11-16 07:00 | NUR ---
Report recieved from ROLA Molina. Pt resting in bed. States that she does not have any pain or concerns at this time. Pt still is having diarrhea but it is alot smaller ammounts. Pts BM is greenish/blue and does have some mucus in it.
--- NOTE | 2021-11-16 07:05 | NUR ---
Report to Mary HENSON.
[2021-11-16 07:26] LABS: URINE APPEARANCE CLEAR; URINE BILIRUBIN NEGATIVE (NEGATIVE); URINE BLOOD NEGATIVE (NEGATIVE); URINE COLOR YELLOW; URINE GLUCOSE NEGATIVE (NEGATIVE); URINE KETONE NEGATIVE (NEGATIVE); URINE LEUKOCYTE ESTERASE NEGATIVE (NEGATIVE); URINE MUCUS PRESENT (NOT PRESENT); URINE PROTEIN(semi-quant) 1+ (NEGATIVE); URINE UROBILINOGEN NORMAL (NORMAL)
[2021-11-16 07:29] LABS: URINE NITRATE NEGATIVE (NEGATIVE)
[2021-11-16 08:23] LABS: POTASSIUM 2.6 mmol/L (3.5-5.1)
[2021-11-16 10:17] VITALS: BP 112/65
[2021-11-16 13:34] LABS: ALBUMIN 2.8 g/dL (3.4-4.8)
[2021-11-16 13:36] LABS: CALCIUM 8.6 mg/dL (8.3-10.5)
[2021-11-16 13:39] LABS: TOTAL BILIRUBIN 1.1 mg/dL (0.2-1.2)
[2021-11-16 13:49] LABS: POTASSIUM 2.9 mmol/L (3.5-5.1)
[2021-11-16 14:09] VITALS: BP 126/77
[2021-11-16 18:00] VITALS: BP 111/72
--- NOTE | 2021-11-16 19:00 | NUR ---
Report received from Mary HENSON. Patient resting in bed watching TV. No signs of pain or distress. Bed alarm on. Call light in reach.
--- NOTE | 2021-11-16 21:04 | NUR ---
Assessment completed. A/O x4 but makes confusing statements at times. Stating someone needs to bring my car up here tomorrow so I don't get stuck here. HS medications taken. Refuses Mylicon. Incontient of urine. No BM noted. Shannan-cares provided. Buttocks reddened, Barrier cream applied. Repositioned up in bed. Bed alarm on. Call light in reach.
[2021-11-16 21:54] VITALS: BP 115/77
--- NOTE | 2021-11-17 01:53 | NUR ---
Patient incontinent large, loose, green foul smelling BM and urine. Shannan/rectal cares provided. Barrier cream applied. States hip hurts but refuses Tylenol. Immodium given at this time. Repositoned for comfort. Bed alarm on, call light in reach.
[2021-11-17 02:02] VITALS: BP 114/70
[2021-11-17 05:57] VITALS: BP 126/77
--- NOTE | 2021-11-17 05:59 | NUR ---
Rested well. Incontinent of B&B. Does not call staff when incontinent. Has 1 Lg and 1 sm. loose, green foul smelling BM's this shift. No further complaints of pain. Repositoned for comfort. Bed alarm on. Call light in reach.
--- NOTE | 2021-11-17 07:09 | NUR ---
Report to Eden Amanda RN.
--- NOTE | 2021-11-17 07:10 | NUR ---
Report received from ROLA Molina. Patient sleeping in bed at this time
[2021-11-17 07:53] LABS: HEMATOCRIT 33.7 % (37.0-47.0); HEMOGLOBIN 10.8 g/dL (12.5-16.0); MEAN CELL VOLUME 94 fl (78-100); MEAN CORPUSCULAR HEMOGLOBIN 30 pg (27-31); MEAN CORPUSCULAR HGB CONC 32 g/dL (33-37); MEAN PLATELET VOLUME 10.4 fl (7.4-10.4); PLATELET COUNT 139 K/mm3 (130-400); RED BLOOD COUNT 3.58 M/mm3 (4.10-5.30); RED CELL DISTRIBUTION WIDTH 14.4 % (11.5-14.5); WHITE BLOOD COUNT 5.3 K/mm3 (4.8-10.8)
[2021-11-17 08:04] LABS: ALBUMIN 2.4 g/dL (3.4-4.8)
[2021-11-17 08:05] LABS: CALCIUM 8.3 mg/dL (8.3-10.5)
[2021-11-17 08:08] LABS: TOTAL BILIRUBIN 0.9 mg/dL (0.2-1.2)
[2021-11-17 08:13] LABS: MAGNESIUM 1.32 mg/dL (1.60-2.60)
[2021-11-17 08:17] LABS: POTASSIUM 2.8 mmol/L (3.5-5.1)
[2021-11-17 08:18] LABS: LYMPHOCYTE 36 % (20-51); MONOCYTE 6 % (3-10); NEUTROPHILS 56 % (42-75)
[2021-11-17 08:19] LABS: BAND 1 % (0-10)
[2021-11-17 10:45] VITALS: BP 128/79
[2021-11-17 13:54] VITALS: BP 121/67
--- NOTE | 2021-11-17 16:18 | NUR ---
PATIENT RESTING IN BED AT THIS TIME. PATIENT HAS REFUSED TO GET OUT OF BED EXCEPT FOR MEALS AND THEN WANTS BACK IN BED IMMEDIATELY AFTER. PATIENT HAS REFUSED WALKS OR GETTING UP TO THE BATHROOM. PATIENT HAS BEEN INCONTINENT OF URINE AND STOOL ALL DAY WITHOUT ATTEMPT TO GO TO BATHROOM. PATIENT DID BRUSH HER HAIR AND AGREE TO USE GREEN SWABS FOR ORAL CARE. PATIENT HAS ASKED QUESTIONS ABOUT HER MEDICATIONS AND IS REFUSING THE SIMETHECONE DUE TO THE [place] EDGES. PATIENT HAS HAD SOME CONFUSED COMMENTS/QUESTIONS AND PLAYS OFF THAT SHE DIDN'T MEAN TO ASK THAT. FOR EXAMPLE, SHE TOLD ME THAT "LOW POTASSIUM HAS BEEN GOING AROUND, AND WONDERED WHAT WE ARE DOING TO PREVENT THAT FROM HAPPENING". "DO YOU HAVE A WEATHER RADIO?". "I HOPE YOU GUYS KNOW THAT I AM NOT GOING BACK TO THE [facility], BECAUSE THAT IS WHERE YOU GO WHEN YOU ARE OLD AND I DON'T WANT TO BE OLD." "WHERE DO YOU GUYS GET YOUR BODY PARTS? DO YOU GET THEM FROM [facility]?"
[2021-11-17 18:54] VITALS: BP 108/68
--- NOTE | 2021-11-17 20:30 | NUR ---
Report received from Eden Morales RN. Patient resting supine in bed watching TV. A/O x4 but has confusing conversation at times related to situation. Denies pain. Assessment completed and HS medications taken. Refuses Simethecone. Incontinent of urine and medium loose BM foul smelling BM. Imodium given with HS medications. Repositioned for comfort. Bed alarm on. Call light in reach.
[2021-11-17 22:06] VITALS: BP 121/75
[2021-11-18] VITALS (7 sets, daily range): BP systolic 107–123; BP diastolic 50–79
--- NOTE | 2021-11-18 00:12 | NUR ---
Resting with eyes closed. No signs of pain or distress. Bed alarm on. Call light in reach.
--- NOTE | 2021-11-18 01:54 | NUR ---
Sleeping well. Incontinent of large amount urine and small amount of mucous stool.
[2021-11-18 07:11] LABS: HEMATOCRIT 35.9 % (37.0-47.0); HEMOGLOBIN 11.1 g/dL (12.5-16.0); MEAN CELL VOLUME 95 fl (78-100); MEAN CORPUSCULAR HEMOGLOBIN 29 pg (27-31); MEAN CORPUSCULAR HGB CONC 31 g/dL (33-37); PLATELET COUNT 147 K/mm3 (130-400); RED BLOOD COUNT 3.78 M/mm3 (4.10-5.30); RED CELL DISTRIBUTION WIDTH 14.4 % (11.5-14.5); WHITE BLOOD COUNT 4.8 K/mm3 (4.8-10.8)
--- NOTE | 2021-11-18 07:11 | NUR ---
Report to Eden HENSON.
[2021-11-18 07:17] LABS: ALBUMIN 2.6 g/dL (3.4-4.8); POTASSIUM 3.5 mmol/L (3.5-5.1)
[2021-11-18 07:18] LABS: CALCIUM 8.5 mg/dL (8.3-10.5)
--- NOTE | 2021-11-18 07:18 | NUR ---
report received from Tracy. Patient is resting in bed in room.
[2021-11-18 07:19] LABS: TOTAL PROTEIN 5.6 g/dL (6.2-8.1)
[2021-11-18 07:21] LABS: TOTAL BILIRUBIN 1.1 mg/dL (0.2-1.2)
[2021-11-18 07:26] LABS: MAGNESIUM 1.26 mg/dL (1.60-2.60)
[2021-11-18 09:37] LABS: BAND 1 % (0-10); LYMPHOCYTE 36 % (20-51); MONOCYTE 9 % (3-10); NEUTROPHILS 50 % (42-75)
[2021-11-18] MEDS ORDERED: EFFER-K20 MEQ PO (13:31)
[2021-11-18] MEDS ORDERED: MAGNESIUM OXID400 M1 PO (13:31)
--- NOTE | 2021-11-18 15:31 | NUR ---
Dr. Rubio at bedside.
--- NOTE | 2021-11-18 16:00 | NUR ---
Report given to Della romeo [facility].
--- NOTE | 2021-11-18 17:42 | NUR ---
[facility] will accept tomorrow. Clinical secure emailed to Leanna at [facility].
--- NOTE | 2021-11-18 19:20 | NUR ---
Report received from Manuela HENSON. Patient resting supine in bed with eyes closed. No signs of pain or distress. Bed alarm on. Call light in reach.
--- NOTE | 2021-11-18 20:54 | NUR ---
Awakened by staff for PM medications and assessment. Oriented to place situation at current time with periods of confusion. Rates pain to L ankle and throat 07/05. Tylenol taken with HS medications. Incontient of urine and trace mucous BM. Shannan cares provided. Repositioned for comfort. Assessment completed. LLE elevated on pillow. Denies wants or needs. Bed alarm on. Call light in reach.
--- NOTE | 2021-11-19 02:00 | NUR ---
Patient has been sleeping without s/s of pain. Staff in to check and change brief. Incontinent of urine and small BM. Awakens briefly with repositioning. Offered and refuses analgesic, denies pain. L ankle remains swolled. Elevated on pillow.
[2021-11-19 02:47] VITALS: BP 106/70; BP 132/67
--- NOTE | 2021-11-19 06:14 | NUR ---
Slept through the night with no verbalization of pain. Tylenol given with AM medications for pain prevention. Slept through incontinent cares. Very little BM this shift.
[2021-11-19 06:23] VITALS: BP 135/79
--- NOTE | 2021-11-19 06:59 | NUR ---
Report to Magui HENSON.
--- NOTE | 2021-11-19 08:53 | NUR ---
Patient sitting up in w/c eating breakfast. A&Ox4, RA, c/o pain in LLE rating it a 5 out of 10 on a numeric pain scale. Patient to return home (LTC) this am. Awaiting the arrival of transportation. All discharge instructions reviewed with patient. Questions and concerns adressed at this time. Chair in locked position. Call light within reach.
== END 2021-11-19 09:45 | DRG 641 ==
LOC: MED/SURG 15:14
PROVIDERS: Family Medicine; Nurse Practitioner Family; ADMIT Physician Assistant
DX: E87.6 Hypokalemia (principal); L03.90 Cellulitis, unspecified; S82.892D Other fracture of left lower leg, subsequent encounter for closed fracture with routine healing; X58.XXXD Exposure to other specified factors, subsequent encounter; E11.9 Type 2 diabetes mellitus without complications; I10 Essential (primary) hypertension; E83.42 Hypomagnesemia; F41.9 Anxiety disorder, unspecified; F32.A Depression, unspecified; G89.29 Other chronic pain; M54.2 Cervicalgia; M79.7 Fibromyalgia; K21.9 Gastro-esophageal reflux disease without esophagitis; E78.5 Hyperlipidemia, unspecified; R19.7 Diarrhea, unspecified; R53.81 Other malaise; F17.210 Nicotine dependence, cigarettes, uncomplicated; Z90.710 Acquired absence of both cervix and uterus; Z88.1 Allergy status to other antibiotic agents; Z88.0 Allergy status to penicillin; Z88.6 Allergy status to analgesic agent
CPT/HCPCS: J1650; J3475; J3480; J7040; L4386

== ENCOUNTER → 2021-11-15 | Outpatient (CLI) | payer MEDICARE, MEDICAID ==
[2021-11-15 14:00] LABS: BASO # 0.03 K/mm3 (0.02-0.10); EOS # 0.08 K/mm3 (0.04-0.40); EOS % 1.6 % (1.0-5.0); HEMOGLOBIN 11.3 g/dL (12.5-16.0); LYMPH# 1.38 K/mm3 (1.50-4.00); MEAN CELL VOLUME 92 fl (78-100); MEAN CORPUSCULAR HEMOGLOBIN 30 pg (27-31); MEAN CORPUSCULAR HGB CONC 32 g/dL (33-37); MEAN PLATELET VOLUME 10.8 fl (7.4-10.4); MONO # 0.59 K/mm3 (0.20-0.80); NEU # 2.77 K/mm3 (1.40-6.50); PLATELET COUNT 144 K/mm3 (130-400); RED CELL DISTRIBUTION WIDTH 14.1 % (11.5-14.5); WHITE BLOOD COUNT 4.9 K/mm3 (4.8-10.8)
[2021-11-15 14:04] LABS: ALBUMIN 2.4 g/dL (3.4-4.8)
[2021-11-15 14:05] LABS: CALCIUM 8.3 mg/dL (8.3-10.5)
[2021-11-15 14:07] LABS: TOTAL PROTEIN 4.8 g/dL (6.2-8.1)
[2021-11-15 14:08] LABS: TOTAL BILIRUBIN 1.1 mg/dL (0.2-1.2)
[2021-11-15 15:04] LABS: ERYTHROCYTE SEDIMENTATION RATE 11 mm/hr (0-30)
== END ==
LOC: LAB 13:38
PROVIDERS: Family Medicine
DX: R19.7 Diarrhea, unspecified (principal); R10.32 Left lower quadrant pain

== ENCOUNTER → 2021-12-12 | Outpatient (CLI) | payer MEDICARE, MEDICAID ==
[~2021-12-12] MED LIST changes: +MAGNESIUM OXID400 M1 PO; +QUALITY CHOICE80 MG PO
== END ==
LOC: RAD 14:38
DX: R05.9 Cough, unspecified (principal)

== ENCOUNTER → 2021-12-30 | Outpatient (CLI) | payer MEDICARE, MEDICAID ==
[2021-12-30 17:37] LABS: URINE APPEARANCE CLEAR; URINE BILIRUBIN NEGATIVE (NEGATIVE); URINE BLOOD NEGATIVE (NEGATIVE); URINE COLOR YELLOW; URINE GLUCOSE NEGATIVE (NEGATIVE); URINE KETONE NEGATIVE (NEGATIVE); URINE LEUKOCYTE ESTERASE NEGATIVE (NEGATIVE); URINE NITRATE NEGATIVE (NEGATIVE); URINE PROTEIN(semi-quant) TRACE (NEGATIVE); URINE UROBILINOGEN NORMAL (NORMAL)
[2021-12-30 17:38] LABS: URINE MUCUS PRESENT (NOT PRESENT)
== END ==
LOC: LAB 15:45
PROVIDERS: Family Medicine
DX: R30.0 Dysuria (principal)

== ENCOUNTER → 2022-01-03 | Outpatient (CLI) | payer MEDICARE, MEDICAID | LOC: LAB 11:02 | DX: E83.42 Hypomagnesemia (principal) ==

== ENCOUNTER → 2022-01-20 | Outpatient (CLI) | payer MEDICARE, MEDICAID ==
[2022-01-20 16:56] LABS: URINE APPEARANCE HAZY; URINE COLOR YELLOW
[2022-01-20 16:57] LABS: URINE BILIRUBIN NEGATIVE (NEGATIVE); URINE BLOOD NEGATIVE (NEGATIVE); URINE GLUCOSE NEGATIVE (NEGATIVE); URINE KETONE NEGATIVE (NEGATIVE); URINE LEUKOCYTE ESTERASE 1+ (NEGATIVE); URINE MUCUS PRESENT (NOT PRESENT); URINE NITRATE NEGATIVE (NEGATIVE); URINE PROTEIN(semi-quant) 1+ (NEGATIVE); URINE UROBILINOGEN NORMAL (NORMAL); URINE WBC 31-50 /hpf (0-3)
== END ==
LOC: LAB 15:01
PROVIDERS: Family Medicine
DX: N39.0 Urinary tract infection, site not specified (principal)

== ENCOUNTER → 2022-02-03 | Outpatient (CLI) | payer MEDICARE, MEDICAID | LOC: MAMMO 13:44 | DX: Z13.820 Encounter for screening for osteoporosis (principal); M81.0 Age-related osteoporosis without current pathological fracture; S82.92XD Unspecified fracture of left lower leg, subsequent encounter for closed fracture with routine healing; Z78.0 Asymptomatic menopausal state ==

== ENCOUNTER → 2022-02-12 | Outpatient (CLI) | payer MEDICARE, MEDICAID | LOC: RAD 07:30 | DX: M19.072 Primary osteoarthritis, left ankle and foot (principal) ==

== ENCOUNTER → 2022-02-25 | Outpatient (CLI) | payer MEDICARE, MEDICAID | LOC: RAD 09:45 | DX: M19.011 Primary osteoarthritis, right shoulder (principal); M85.80 Other specified disorders of bone density and structure, unspecified site; W19.XXXA Unspecified fall, initial encounter ==

== ENCOUNTER → 2022-03-19 | Outpatient (CLI) | payer MEDICARE, MEDICAID ==
[2022-03-19 14:35] LABS: URINE APPEARANCE CLOUDY; URINE COLOR YELLOW
[2022-03-19 14:36] LABS: URINE BILIRUBIN NEGATIVE (NEGATIVE); URINE BLOOD NEGATIVE (NEGATIVE); URINE GLUCOSE NEGATIVE (NEGATIVE); URINE KETONE NEGATIVE (NEGATIVE); URINE LEUKOCYTE ESTERASE TRACE (NEGATIVE); URINE NITRATE POSITIVE (NEGATIVE); URINE PROTEIN(semi-quant) TRACE (NEGATIVE); URINE UROBILINOGEN NORMAL (NORMAL)
== END ==
LOC: LAB 13:16
PROVIDERS: Family Medicine
DX: N39.0 Urinary tract infection, site not specified (principal)

== ENCOUNTER → 2022-03-28 | Outpatient (CLI) | payer MEDICARE, MEDICAID ==
[2022-03-28 15:09] LABS: URINE APPEARANCE CLEAR; URINE BILIRUBIN NEGATIVE (NEGATIVE); URINE BLOOD NEGATIVE (NEGATIVE); URINE COLOR YELLOW; URINE GLUCOSE NEGATIVE (NEGATIVE); URINE KETONE NEGATIVE (NEGATIVE); URINE LEUKOCYTE ESTERASE NEGATIVE (NEGATIVE); URINE NITRATE NEGATIVE (NEGATIVE); URINE PROTEIN(semi-quant) NEGATIVE (NEGATIVE); URINE UROBILINOGEN NORMAL (NORMAL); URINE WBC 0-1 /hpf (0-3)
[2022-03-28 15:10] LABS: URINE MUCUS PRESENT (NOT PRESENT)
== END ==
LOC: LAB 14:16
PROVIDERS: Family Medicine
DX: N39.0 Urinary tract infection, site not specified (principal)

== ENCOUNTER → 2022-04-16 | Outpatient (CLI) | payer MEDICARE, MEDICAID ==
[2022-04-16 13:36] LABS: URINE WBC 0 /hpf (0-3)
[2022-04-16 13:54] LABS: URINE APPEARANCE CLEAR; URINE BILIRUBIN NEGATIVE (NEGATIVE); URINE BLOOD NEGATIVE (NEGATIVE); URINE COLOR YELLOW; URINE GLUCOSE NEGATIVE (NEGATIVE); URINE KETONE NEGATIVE (NEGATIVE); URINE LEUKOCYTE ESTERASE NEGATIVE (NEGATIVE); URINE NITRATE NEGATIVE (NEGATIVE); URINE PROTEIN(semi-quant) NEGATIVE (NEGATIVE); URINE UROBILINOGEN NORMAL (NORMAL)
== END ==
LOC: LAB 08:42
PROVIDERS: Family Medicine
DX: R30.9 Painful micturition, unspecified (principal)

== ENCOUNTER → 2022-05-01 | Outpatient (CLI) | payer MEDICARE, MEDICAID ==
[2022-05-01 15:27] LABS: URINE APPEARANCE CLEAR; URINE BILIRUBIN NEGATIVE (NEGATIVE); URINE BLOOD 50 ery/uL (NEGATIVE); URINE COLOR YELLOW; URINE GLUCOSE NEGATIVE (NEGATIVE); URINE KETONE NEGATIVE (NEGATIVE); URINE LEUKOCYTE ESTERASE NEGATIVE (NEGATIVE); URINE MUCUS PRESENT (NOT PRESENT); URINE NITRATE NEGATIVE (NEGATIVE); URINE PROTEIN(semi-quant) TRACE (NEGATIVE); URINE UROBILINOGEN NORMAL (NORMAL); URINE WBC 0-1 /hpf (0-3)
== END ==
LOC: LAB 14:00
PROVIDERS: Family Medicine
DX: N39.0 Urinary tract infection, site not specified (principal)

== ENCOUNTER → 2022-05-09 | Outpatient (CLI) | payer MEDICARE, MEDICAID ==
[2022-05-09 18:54] LABS: PH-URINE 5.5 (5.0 - 8.0); URINE APPEARANCE CLEAR; URINE BILIRUBIN NEGATIVE (NEGATIVE); URINE BLOOD NEGATIVE (NEGATIVE); URINE COLOR YELLOW; URINE GLUCOSE NEGATIVE (NEGATIVE); URINE KETONE NEGATIVE (NEGATIVE); URINE LEUKOCYTE ESTERASE NEGATIVE (NEGATIVE); URINE MUCUS PRESENT (NOT PRESENT); URINE NITRATE NEGATIVE (NEGATIVE); URINE PROTEIN(semi-quant) TRACE (NEGATIVE); URINE UROBILINOGEN NORMAL (NORMAL)
== END ==
LOC: LAB 17:40
PROVIDERS: Family Medicine
DX: N39.0 Urinary tract infection, site not specified (principal)

== ENCOUNTER → 2022-07-04 | Outpatient (CLI) | payer MEDICARE, MEDICAID ==
[2022-07-04 19:29] LABS: URINE APPEARANCE HAZY; URINE BILIRUBIN NEGATIVE (NEGATIVE); URINE BLOOD NEGATIVE (NEGATIVE); URINE COLOR YELLOW; URINE GLUCOSE NEGATIVE (NEGATIVE); URINE KETONE NEGATIVE (NEGATIVE); URINE LEUKOCYTE ESTERASE TRACE (NEGATIVE); URINE MUCUS PRESENT (NOT PRESENT); URINE NITRATE POSITIVE (NEGATIVE); URINE PROTEIN(semi-quant) TRACE (NEGATIVE); URINE UROBILINOGEN NORMAL (NORMAL)
== END ==
LOC: LAB 18:44
PROVIDERS: Family Medicine
DX: Z01.89 Encounter for other specified special examinations (principal)

== ENCOUNTER → 2022-07-17 | Outpatient (CLI) | payer MEDICARE, MEDICAID | LOC: RAD 14:55 | DX: S42.211A Unspecified displaced fracture of surgical neck of right humerus, initial encounter for closed fracture (principal); X58.XXXA Exposure to other specified factors, initial encounter ==

== ENCOUNTER → 2022-07-19 | Outpatient (CLI) | payer MEDICARE, MEDICAID ==
[2022-07-19 07:51] LABS: URINE APPEARANCE CLEAR; URINE BILIRUBIN NEGATIVE (NEGATIVE); URINE BLOOD NEGATIVE (NEGATIVE); URINE COLOR YELLOW; URINE GLUCOSE NEGATIVE (NEGATIVE); URINE KETONE NEGATIVE (NEGATIVE); URINE LEUKOCYTE ESTERASE NEGATIVE (NEGATIVE); URINE NITRATE NEGATIVE (NEGATIVE); URINE PROTEIN(semi-quant) NEGATIVE (NEGATIVE); URINE UROBILINOGEN NORMAL (NORMAL); URINE WBC 0-1 /hpf (0-3)
== END ==
LOC: LAB 04:05
PROVIDERS: Family Medicine
DX: R30.0 Dysuria (principal)

== ENCOUNTER → 2022-09-04 | Outpatient (CLI) | payer MEDICARE, MEDICAID ==
[2022-09-04 17:05] LABS: BASO # 0.04 K/mm3 (0.02-0.10); EOS # 0.15 K/mm3 (0.04-0.40); EOS % 2.3 % (1.0-5.0); HEMOGLOBIN 13.1 g/dL (12.5-16.0); LYMPH# 2.67 K/mm3 (1.50-4.00); MEAN CELL VOLUME 97 fl (78-100); MEAN CORPUSCULAR HEMOGLOBIN 32 pg (27-31); MEAN CORPUSCULAR HGB CONC 33 g/dL (33-37); MEAN PLATELET VOLUME 10.3 fl (7.4-10.4); MONO # 0.47 K/mm3 (0.20-0.80); NEU # 3.19 K/mm3 (1.40-6.50); PLATELET COUNT 131 K/mm3 (130-400); RED BLOOD COUNT 4.14 M/mm3 (4.10-5.30); RED CELL DISTRIBUTION WIDTH 12.6 % (11.5-14.5); WHITE BLOOD COUNT 6.5 K/mm3 (4.8-10.8)
[2022-09-04 17:22] LABS: ALBUMIN 3.7 g/dL (3.4-4.8); POTASSIUM 5.2 mmol/L (3.5-5.1)
[2022-09-04 17:23] LABS: CALCIUM 9.5 mg/dL (8.3-10.5)
[2022-09-04 17:26] LABS: TOTAL BILIRUBIN 1.2 mg/dL (0.2-1.2)
[2022-09-04 17:31] LABS: MAGNESIUM 1.79 mg/dL (1.60-2.60)
== END ==
LOC: LAB 16:25
PROVIDERS: Family Medicine
DX: M51.36 Other intervertebral disc degeneration, lumbar region (principal); R19.5 Other fecal abnormalities

== ENCOUNTER → 2022-09-30 | Outpatient (CLI) | payer MEDICARE, MEDICAID ==
[2022-09-30 16:23] LABS: URINE APPEARANCE CLEAR; URINE BILIRUBIN NEGATIVE (NEGATIVE); URINE BLOOD NEGATIVE (NEGATIVE); URINE COLOR YELLOW; URINE GLUCOSE NEGATIVE (NEGATIVE); URINE KETONE NEGATIVE (NEGATIVE); URINE LEUKOCYTE ESTERASE NEGATIVE (NEGATIVE); URINE MUCUS PRESENT (NOT PRESENT); URINE NITRATE NEGATIVE (NEGATIVE); URINE PROTEIN(semi-quant) TRACE (NEGATIVE); URINE UROBILINOGEN NORMAL (NORMAL)
== END ==
LOC: LAB 15:58
DX: N39.0 Urinary tract infection, site not specified (principal)

== ENCOUNTER → 2022-11-13 | Outpatient (CLI) | payer MEDICARE, MEDICAID ==
[2022-11-13 15:45] LABS: HEMATOCRIT 37.7 % (37.0-47.0); HEMOGLOBIN 12.3 g/dL (12.5-16.0); MEAN PLATELET VOLUME 10.4 fl (7.4-10.4); RED BLOOD COUNT 3.9 M/mm3 (4.10-5.30); RED CELL DISTRIBUTION WIDTH 12.8 % (11.5-14.5); WHITE BLOOD COUNT 6.2 K/mm3 (4.8-10.8)
[2022-11-13 15:54] LABS: ALBUMIN 3.5 g/dL (3.4-4.8); POTASSIUM 4.9 mmol/L (3.5-5.1); SODIUM 141 mmol/L (136-145)
[2022-11-13 15:55] LABS: CALCIUM 9.5 mg/dL (8.3-10.5)
[2022-11-13 15:56] LABS: GLUCOSE 89 mg/dL (65-105); TOTAL PROTEIN 6.2 g/dL (6.2-8.1)
[2022-11-13 15:57] LABS: CARBON DIOXIDE 24 mmol/L (23-31)
[2022-11-13 15:58] LABS: TOTAL BILIRUBIN 1.2 mg/dL (0.2-1.2)
[2022-11-13 16:02] LABS: AST-SGOT 24 U/L (5-34)
[2022-11-13 16:03] LABS: ALT/SGPT 13 U/L (0-55)
[2022-11-13 16:25] LABS: TROPONIN-I < 0.030 ng/mL (<0.030)
== END ==
LOC: AMSURD 15:30
PROVIDERS: Family Medicine
DX: M54.2 Cervicalgia (principal); R07.89 Other chest pain; M79.672 Pain in left foot

== ENCOUNTER 2023-01-16 16:51 | Emergency (ER) | payer MEDICARE, MEDICAID ==
[~2023-01-16] VITALS: Ht 177.8 cm; Wt 74.2 kg
[2023-01-16 17:32] LABS: BASO # 0.03 K/mm3 (0.02-0.10); EOS # 0.11 K/mm3 (0.04-0.40); EOS % 1.5 % (1.0-5.0); HEMATOCRIT 37.6 % (37.0-47.0); HEMOGLOBIN 12.3 g/dL (12.5-16.0); MEAN CELL VOLUME 96 fl (78-100); MEAN CORPUSCULAR HEMOGLOBIN 32 pg (27-31); MEAN CORPUSCULAR HGB CONC 33 g/dL (33-37); MEAN PLATELET VOLUME 10.5 fl (7.4-10.4); MONO # 0.71 K/mm3 (0.20-0.80); NEU # 3.28 K/mm3 (1.40-6.50); PLATELET COUNT 113 K/mm3 (130-400); RED BLOOD COUNT 3.91 M/mm3 (4.10-5.30); RED CELL DISTRIBUTION WIDTH 13.3 % (11.5-14.5); WHITE BLOOD COUNT 7.2 K/mm3 (4.8-10.8)
[2023-01-16 17:33] LABS: POTASSIUM 4.5 mmol/L (3.5-5.1); SODIUM 141 mmol/L (136-145)
[2023-01-16 17:35] LABS: CALCIUM 9.4 mg/dL (8.3-10.5)
[2023-01-16 17:36] LABS: GLUCOSE 88 mg/dL (65-105); TOTAL PROTEIN 6.7 g/dL (6.2-8.1)
[2023-01-16 17:37] LABS: CARBON DIOXIDE 23 mmol/L (23-31)
[2023-01-16 17:38] LABS: TOTAL BILIRUBIN 1.1 mg/dL (0.2-1.2)
[2023-01-16 17:40] LABS: ALCOHOL IN-HOUSE < 10 mg/dL (<10)
[2023-01-16 17:41] LABS: AST-SGOT 22 U/L (5-34)
[2023-01-16 17:43] LABS: ALT/SGPT 16 U/L (0-55)
[2023-01-16 17:45] LABS: ACETAMINOPHEN < 1 ug/mL
[2023-01-16 17:46] LABS: PH-URINE 5.5 (5.0 - 8.0); URINE APPEARANCE CLOUDY; URINE BILIRUBIN NEGATIVE (NEGATIVE); URINE BLOOD TRACE (NEGATIVE); URINE COLOR YELLOW; URINE GLUCOSE NEGATIVE (NEGATIVE); URINE KETONE NEGATIVE (NEGATIVE); URINE LEUKOCYTE ESTERASE 1+ (NEGATIVE); URINE NITRATE POSITIVE (NEGATIVE); URINE PROTEIN(semi-quant) TRACE (NEGATIVE); URINE UROBILINOGEN NORMAL (NORMAL)
[2023-01-16 17:47] LABS: URINE WBC 16-30 /hpf (0-3)
[2023-01-16] MEDS ORDERED: BACTRIM DS TAB1 EACH PO (22:00)
[2023-01-17 07:15] VITALS: BP 149/79
== END 2023-01-17 07:39 | disposition home or self-care (01) ==
LOC: ED 16:51
PROVIDERS: Family Medicine
DX: R45.850 Homicidal ideations (principal); R44.1 Visual hallucinations; E66.9 Obesity, unspecified; Z86.16 Personal history of COVID-19; Z68.23 Body mass index [BMI] 23.0-23.9, adult; Z88.0 Allergy status to penicillin; Z88.1 Allergy status to other antibiotic agents
CPT/HCPCS: J0696

== ENCOUNTER → 2023-07-03 | Outpatient (CLI) | payer MEDICARE, MEDICAID ==
[~2023-07-03] MED LIST changes: +BACTRIM DS TAB1 EACH PO
[2023-07-03 08:22] LABS: HEMATOCRIT 38.8 % (37.0-47.0); HEMOGLOBIN 12.3 g/dL (12.5-16.0); MEAN PLATELET VOLUME 10.5 fl (7.4-10.4); RED BLOOD COUNT 3.91 M/mm3 (4.10-5.30); RED CELL DISTRIBUTION WIDTH 13.6 % (11.5-14.5); WHITE BLOOD COUNT 6.4 K/mm3 (4.8-10.8)
[2023-07-03 08:27] LABS: ALBUMIN 3.8 g/dL (3.4-4.8); POTASSIUM 5.5 mmol/L (3.5-5.1)
[2023-07-03 08:28] LABS: CALCIUM 9.9 mg/dL (8.3-10.5)
[2023-07-03 08:30] LABS: TOTAL PROTEIN 6.8 g/dL (6.2-8.1)
[2023-07-03 08:32] LABS: TOTAL BILIRUBIN 0.5 mg/dL (0.2-1.2)
[2023-07-03 08:36] LABS: MAGNESIUM 1.69 mg/dL (1.60-2.60)
[2023-07-04 00:16] LABS: T3 TOTAL 84 ng/dL (35-193)
== END ==
LOC: LAB 07:28
PROVIDERS: Family Medicine
DX: R29.6 Repeated falls (principal)

== ENCOUNTER → 2023-09-28 | Outpatient (CLI) | payer MEDICARE, MEDICAID | LOC: RAD 10:48 | DX: R44.1 Visual hallucinations (principal); R44.0 Auditory hallucinations; Z85.3 Personal history of malignant neoplasm of breast ==

== ENCOUNTER → 2023-10-07 | Outpatient (CLI) | payer MEDICARE, MEDICAID ==
[2023-10-07 12:33] LABS: URINE APPEARANCE CLOUDY; URINE BILIRUBIN NEGATIVE (NEGATIVE); URINE BLOOD NEGATIVE (NEGATIVE); URINE COLOR YELLOW; URINE GLUCOSE NEGATIVE (NEGATIVE); URINE KETONE NEGATIVE (NEGATIVE); URINE LEUKOCYTE ESTERASE 1+ (NEGATIVE); URINE NITRATE POSITIVE (NEGATIVE); URINE PROTEIN(semi-quant) NEGATIVE (NEGATIVE)
[2023-10-07 12:34] LABS: URINE WBC >50 /hpf (0-3)
== END ==
LOC: LAB 12:10
PROVIDERS: Family Medicine
DX: N30.00 Acute cystitis without hematuria (principal)

== ENCOUNTER → 2023-10-21 | Outpatient (CLI) | payer MEDICARE, MEDICAID ==
[2023-10-21 11:12] LABS: HEMATOCRIT 35.8 % (37.0-47.0); HEMOGLOBIN 11.9 g/dL (12.5-16.0); MEAN PLATELET VOLUME 9.8 fl (7.4-10.4); RED BLOOD COUNT 3.69 M/mm3 (4.10-5.30); RED CELL DISTRIBUTION WIDTH 12.5 % (11.5-14.5); WHITE BLOOD COUNT 11.2 K/mm3 (4.8-10.8)
[2023-10-21 11:20] LABS: CALCIUM 9.5 mg/dL (8.3-10.5)
[2023-10-21 20:35] LABS: URINE APPEARANCE CLOUDY (CLEAR); URINE COLOR YELLOW (YELLOW)
[2023-10-21 20:36] LABS: PH-URINE 5.5 (5.0 - 8.0)
[2023-10-21 20:41] LABS: URINE BILIRUBIN NEGATIVE (NEGATIVE); URINE GLUCOSE NEGATIVE (NEGATIVE); URINE KETONE NEGATIVE (NEGATIVE); URINE PROTEIN(semi-quant) NEGATIVE (NEGATIVE)
[2023-10-21 20:44] LABS: URINE BLOOD TRACE-INTACT (NEGATIVE); URINE LEUKOCYTE ESTERASE 1+ (NEGATIVE); URINE NITRATE POSITIVE (NEGATIVE); URINE WBC 16-30 /hpf (0-3)
== END ==
LOC: LAB 10:58
PROVIDERS: Nurse Practitioner Family
DX: N39.0 Urinary tract infection, site not specified (principal); I10 Essential (primary) hypertension; R00.0 Tachycardia, unspecified

== ENCOUNTER → 2023-11-20 | Outpatient (CLI) | payer MEDICARE, MEDICAID ==
[2023-11-20 06:58] LABS: PH-URINE 5.5 (5.0 - 8.0); URINE APPEARANCE CLEAR (CLEAR); URINE BILIRUBIN NEGATIVE (NEGATIVE); URINE BLOOD NEGATIVE (NEGATIVE); URINE COLOR YELLOW (YELLOW); URINE GLUCOSE NEGATIVE (NEGATIVE); URINE KETONE NEGATIVE (NEGATIVE); URINE LEUKOCYTE ESTERASE TRACE (NEGATIVE); URINE MUCUS PRESENT (NOT PRESENT); URINE NITRATE NEGATIVE (NEGATIVE); URINE PROTEIN(semi-quant) NEGATIVE (NEGATIVE)
== END ==
LOC: LAB 05:45
PROVIDERS: Nurse Practitioner Family
DX: N39.0 Urinary tract infection, site not specified (principal)

== ENCOUNTER → 2023-12-20 | Outpatient (REF) | payer MEDICARE, MEDICAID ==
[2023-12-20 18:30] LABS: PH-URINE 6.5 (5.0 - 8.0); URINE APPEARANCE SLIGHTLY CLOUDY (CLEAR); URINE BILIRUBIN NEGATIVE (NEGATIVE); URINE BLOOD NEGATIVE (NEGATIVE); URINE COLOR YELLOW (YELLOW); URINE GLUCOSE NEGATIVE (NEGATIVE); URINE KETONE NEGATIVE (NEGATIVE); URINE LEUKOCYTE ESTERASE NEGATIVE (NEGATIVE); URINE NITRATE NEGATIVE (NEGATIVE); URINE PROTEIN(semi-quant) NEGATIVE (NEGATIVE)
== END ==
LOC: LAB 18:12
PROVIDERS: Nurse Practitioner Family
DX: Z01.89 Encounter for other specified special examinations (principal)

== ENCOUNTER → 2024-02-22 | Outpatient (REF) | payer MEDICARE, MEDICAID ==
[2024-02-22 21:04] LABS: CALCIUM 9.2 mg/dL (8.3-10.5)
== END ==
LOC: LAB 20:00
PROVIDERS: Family Medicine
DX: Z13.1 Encounter for screening for diabetes mellitus (principal); I10 Essential (primary) hypertension

== ENCOUNTER 2024-08-01 18:05 | Emergency (ER) | payer MEDICARE, MEDICAID ==
[2024-08-01 18:56] LABS: ALBUMIN 3.7 g/dL (3.4-4.8)
[2024-08-01 18:57] LABS: BASO # 0.02 K/mm3 (0.02-0.10); CALCIUM 9.3 mg/dL (8.3-10.5); EOS # 0.27 K/mm3 (0.04-0.40); EOS % 3.4 % (1.0-5.0); HEMATOCRIT 40.1 % (37.0-47.0); HEMOGLOBIN 13.5 g/dL (12.5-16.0); MEAN CELL VOLUME 98 fl (78-100); MEAN CORPUSCULAR HEMOGLOBIN 33 pg (27-31); MEAN CORPUSCULAR HGB CONC 34 g/dL (33-37); MEAN PLATELET VOLUME 10.2 fl (7.4-10.4); MONO # 0.68 K/mm3 (0.20-0.80); NEU # 4.44 K/mm3 (1.40-6.50); PLATELET COUNT 118 K/mm3 (130-400); RED BLOOD COUNT 4.11 M/mm3 (4.10-5.30); RED CELL DISTRIBUTION WIDTH 12.8 % (11.5-14.5); WHITE BLOOD COUNT 7.8 K/mm3 (4.8-10.8)
[2024-08-01 18:59] LABS: TOTAL PROTEIN 6.4 g/dL (6.2-8.1)
[2024-08-01 19:00] LABS: TOTAL BILIRUBIN 0.5 mg/dL (0.2-1.2)
[2024-08-01] MEDS ORDERED: Iohexol 300 - 100 ML VIAL IV ONE (20:00)
[2024-08-01 21:57] VITALS: BP 172/99
== END 2024-08-01 21:57 | disposition home or self-care (01) ==
LOC: ED 18:05
PROVIDERS: Physician Assistant
DX: S00.03XA Contusion of scalp, initial encounter (principal); M54.2 Cervicalgia; R10.2 Pelvic and perineal pain; W19.XXXA Unspecified fall, initial encounter; W22.8XXA Striking against or struck by other objects, initial encounter; Y93.01 Activity, walking, marching and hiking; Y92.89 Other specified places as the place of occurrence of the external cause
CPT/HCPCS: Q9967

== ENCOUNTER → 2024-08-18 | Outpatient (REF) | payer MEDICARE, MEDICAID ==
[2024-08-18 10:03] LABS: PH-URINE 5.5 (5.0 - 8.0); URINE APPEARANCE CLOUDY (CLEAR); URINE COLOR YELLOW (YELLOW); URINE PROTEIN(semi-quant) NEGATIVE (NEGATIVE)
[2024-08-18 10:04] LABS: URINE BILIRUBIN NEGATIVE (NEGATIVE); URINE BLOOD NEGATIVE (NEGATIVE); URINE GLUCOSE NEGATIVE (NEGATIVE); URINE KETONE NEGATIVE (NEGATIVE); URINE LEUKOCYTE ESTERASE TRACE (NEGATIVE); URINE NITRATE NEGATIVE (NEGATIVE)
== END ==
LOC: LAB 09:28
PROVIDERS: Family Medicine
DX: R30.0 Dysuria (principal)

== ENCOUNTER → 2024-09-12 | Outpatient (REF) | payer MEDICARE, MEDICAID ==
[2024-09-12 09:00] LABS: CALCIUM 9.1 mg/dL (8.3-10.5)
== END ==
LOC: LAB 08:25
PROVIDERS: Family Medicine
DX: Z00.00 Encounter for general adult medical examination without abnormal findings (principal)

== ENCOUNTER 2024-10-16 03:52 | Emergency (ER) | payer MEDICARE, MEDICAID ==
[~2024-10-16] VITALS: Ht 172.7 cm; Wt 79.7 kg
[2024-10-16 04:39] LABS: HEMATOCRIT 45.6 % (37.0-47.0); HEMOGLOBIN 14.9 g/dL (12.5-16.0); MEAN CELL VOLUME 102 fl (78-100); MEAN CORPUSCULAR HEMOGLOBIN 33 pg (27-31); MEAN CORPUSCULAR HGB CONC 33 g/dL (33-37); PLATELET COUNT 127 K/mm3 (130-400); RED BLOOD COUNT 4.49 M/mm3 (4.10-5.30); RED CELL DISTRIBUTION WIDTH 12.3 % (11.5-14.5); WHITE BLOOD COUNT 12.2 K/mm3 (4.8-10.8)
[2024-10-16] MEDS ORDERED: CELEBREX400 MG PO (04:40)
[2024-10-16] MEDS ORDERED: ALENDRONATE SOD10 M1 PO (04:40)
[2024-10-16] MEDS ORDERED: COLESEVELAM H3.75 GM PO (04:40)
[2024-10-16] MEDS ORDERED: FAMOTIDINE20 MG PO (04:41)
[2024-10-16] MEDS ORDERED: BENTYL 20MG20 MG/TAB PO (04:41)
[2024-10-16] MEDS ORDERED: GABAPENTIN TAB600 MG PO (04:42)
[2024-10-16] MEDS ORDERED: NEURONTIN300 M1 PO (04:42)
[2024-10-16] MEDS ORDERED: KLONOPIN 1MG1 MG PO ×2 (04:43)
[2024-10-16] MEDS ORDERED: DOCUSATE SODIUM1 TA2 PO (04:45)
[2024-10-16] MEDS ORDERED: SEROQUEL50 MG PO (04:45)
[2024-10-16 04:46] LABS: ALBUMIN 4.2 g/dL (3.4-4.8)
[2024-10-16] MEDS ORDERED: SYSTANE COMPLET10 ML OU (04:46)
[2024-10-16] MEDS ORDERED: CALCIUM CARBONATE PO (04:47)
[2024-10-16 04:48] LABS: CALCIUM 9.2 mg/dL (8.3-10.5)
[2024-10-16] MEDS ORDERED: VITAMIN C500 M7 PO (04:48)
[2024-10-16 04:49] LABS: TOTAL PROTEIN 7.4 g/dL (6.2-8.1)
[2024-10-16 04:51] LABS: TOTAL BILIRUBIN 0.4 mg/dL (0.2-1.2)
[2024-10-16 04:58] LABS: BAND 2 % (0-10); LYMPHOCYTE 1 % (20-51); MONOCYTE 3 % (3-10); NEUTROPHILS 94 % (42-75)
[2024-10-16 05:25] LABS: PH-URINE 5.5 (5.0 - 8.0); URINE APPEARANCE CLOUDY (CLEAR); URINE COLOR YELLOW (YELLOW); URINE GLUCOSE NEGATIVE (NEGATIVE); URINE PROTEIN(semi-quant) NEGATIVE (NEGATIVE)
[2024-10-16 05:28] LABS: URINE BILIRUBIN NEGATIVE (NEGATIVE); URINE BLOOD NEGATIVE (NEGATIVE); URINE KETONE TRACE (NEGATIVE); URINE LEUKOCYTE ESTERASE NEGATIVE (NEGATIVE); URINE NITRATE NEGATIVE (NEGATIVE); URINE WBC 0-1 /hpf (0-3)
[2024-10-16] MEDS ORDERED: NS 1,000 ML IV SCH (05:45)
[2024-10-16] MEDS ORDERED: ZOFRAN ODT4 MG PO (07:12)
[2024-10-16] MEDS ORDERED: MACROBID 100 M100 MG PO (07:12)
[2024-10-16 07:13] VITALS: BP 123/59
[2024-10-16] MEDS ORDERED: Home Ondansetron ODT 4 MG #2 ODT/PACK PO ONE (07:15)
[2024-10-16] MEDS ORDERED: Nitrofurantoin (Mono/Macro) 100 MG CAPSULE PO ONE ×2 (07:15→07:30)
== END 2024-10-16 08:30 | disposition home or self-care (01) ==
LOC: ED 03:52
PROVIDERS: Family Medicine
DX: N39.0 Urinary tract infection, site not specified (principal); R11.10 Vomiting, unspecified; Z86.16 Personal history of COVID-19; Z85.3 Personal history of malignant neoplasm of breast
CPT/HCPCS: J7030